=== PATIENT | female | born 1970 | race Caucasian/White ===

== ENCOUNTER 2016-11-26 15:01 | Inpatient (IN) | payer OTHER ==
--- NOTE | 2016-11-26 15:43 | RAD ---
EXAM DESCRIPTION: XR CHEST 1 VIEW CLINICAL HISTORY: shortness of breath COMPARISON: None TECHNIQUE: Single view chest FINDINGS: The lungs are clear. There is no pleural effusion or pneumothorax. Heart size is unremarkable. IMPRESSION: Unremarkable single view of the chest Electronically signed by: Jonel Contreras MD 11/26/2016 15:41
--- NOTE | 2016-11-26 16:26 | ED.PDOC ---
History of Present Illness - General Chief Complaint: Respiratory Problem Stated Complaint: Shortness of breath/ post op Time Seen by Provider: 11/26/16 15:23 Source: patient Exam Limitations: no limitations - History of Present Illness Initial Comments: THIS PATIENT WAS SENT FROM DR. CRISTINA'S OFFICE FOR RECURRENT DYSPNEA. EVIDENTLY SHE UNDERWENT BACK SURGERY RECENTLY AND WAS DISCHARGED FROM [facility] THIS PAST SATURDAY. BEFORE BEING DISCHARGED FROM THE SURGICAL SERVICE SHE BECAME SOB AND WAS KEPT FOR ANOTHER DAY OR TWO. SHE UNDERWENT AN ECHOCARDIOGRAM, BILATERAL LOWER LEG VENOUS DOPPLER STUDIES AND CT ANGIO OF THE CHEST THAT REVEALED NO PE. THE ECHO AND THE DOPPLER STUDIES WERE ALSO NEGATIVE. SHE WAS DISCHARGED TO F/U WITH HER PCP AND HAVE FURTHER INVESTIGATION OF THE DYSPNEA. EVIDENTLY SHE CONTINUES TO DESATURATE Timing/Duration: days - THREE DAYS Severity: moderate Activities at Onset: none Possible Cause: no prior episodes Improving Factors: nothing Worsening Factors: nothing Associated Symptoms: anxiety Respiratory Risk Factors: no cause identified Allergies/Adverse Reactions: Allergies Acetaminophen [From [place]] Allergy (Verified 10/12/16 21:29) Rash Hydrocodone [From [place]] Allergy (Verified 10/12/16 21:29) Rash Latex Allergy (Verified 10/12/16 21:29) Rash Review of Systems - Review of Systems Constitutional: Denies: chills, diaphoresis EENTM: States: no symptoms reported Respiratory: States: no symptoms reported Cardiology: States: palpitations Gastrointestinal/Abdominal: States: no symptoms reported Musculoskeletal: States: no symptoms reported Skin: States: no symptoms reported Neurological: States: no symptoms reported Endocrine: States: no symptoms reported Hematologic/Lymphatic: States: no symptoms reported All other Systems: Reviewed and Negative Past Medical History (General) - Patient Medical History Hx Seizures: No Hx Stroke: No Hx Dementia: No Hx Asthma: No Hx of COPD: No Hx Cardiac Disorders: No Hx Congestive Heart Failure: No Hx Pacemaker: No Hx Hypertension: Yes Hx Thyroid Disease: No Hx Diabetes: No Hx Gastroesophageal Reflux: No Hx Renal Disease: No Hx Cancer: No Hx of HIV: No Hx Hepatitis C: No Hx MRSA: Yes - Unknown Source 2014 - Vaccination History Hx Tetanus, Diphtheria Vaccination: No Hx Influenza Vaccination: Yes Hx Pneumococcal Vaccination: No - Social History Hx Tobacco Use: No Hx Alcohol Use: No Hx Substance Use: Yes - 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 Hx Substance Use Treatment: No Hx Depression: No Hx Physical Abuse: No Hx Emotional Abuse: No Hx Suspected Abuse: No - Female History Patient : No Family Medical History - Family History Mother Family History: No Known Living Status: Still Living Physical Exam - Physical Exam General Appearance: Alert, Anxious Eyes, Ears, Nose, Throat Exam: PERRL/EOMI, normal ENT inspection, TMs normal, pharynx normal Neck: non-tender, full range of motion, supple, normal inspection Respiratory: chest non-tender, lungs clear, normal breath sounds, no respiratory distress, no accessory muscle use Cardiovascular/Chest: normal peripheral pulses, regular rate, rhythm, no edema, no gallop, no JVD, no murmur Gastrointestinal/Abdominal: normal bowel sounds, non tender, soft, no organomegaly, no pulsatile mass 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 CBC, CMP AND ABG'S ARE NORMAL. THE CXR W/O ACUTE PROCESS. THE D-DDIMER EXPECTED IS ELEVATED AT 850. DISCUSSED CASE WITH HOSPITALIST AGUSTINA LANZA: WILL ADMIT FOR OBSERVATION. Departure - Departure Clinical Impression: Dyspnea Qualifiers: Dyspnea type: dyspnea on exertion Qualifier Code: (R06.09) Other forms of dyspnea Time of Disposition: 17:01 Disposition: Admit Patient Condition: Good Departure Forms: ED Discharge - Pt. Copy, Patient Portal Self Enrollment Diet: resume usual diet Referrals: Patrick Cristina MD [Primary Care Provider] - 1-2 Weeks Decision To Admit - Decistion To Admit Decision to Admit Reason: Admit from ER Decision to Admit Date: 11/26/16 Decision to Admit Time: 16:59
[2016-11-26] MEDS ORDERED: METHOCARBAMOL 750 MG TAB PO ONE (17:07)
[2016-11-26] MEDS ORDERED: SODIUM CHLORIDE 0.9% (FLUSH) 10 ML SYG IV PRN (17:16)
--- NOTE | 2016-11-26 17:33 | HP ---
SUPERVISING PHYSICIAN: Patrick Corrales M.D. CHIEF COMPLAINT: Dyspnea. HISTORY OF PRESENT ILLNESS: Ms. Lazaro is a 46 year-old female that presented to the Emergency Department from Dr. Corrales's office, her primary care physician, today complaining of worsening shortness of breath. She had a recent surgery in [place] for an L4-L5 lateral recess stenosis and lower extremity radiculopathy which she had a subtotal L4 laminectomy and bilateral foraminotomy for decompression and a partial L5 laminectomy with bilateral foraminotomies for decompression by Dr. Lemuel Irwin at [facility] in [place], [place]. Surgery was performed on 11/20/16. She tolerated surgery well and was being discharge at which time she developed severe shortness of breath and some chest pains. She was then admitted to the hospital at [facility] for further workup for possible pulmonary embolism. There she had a CT of the chest and per their radiology interpretation showed negative for pulmonary embolism but less than optimal contrast enhancement within the pulmonary arteries with small peripheral emboli difficult to fully exclude. She then had an echocardiogram which showed a normal left ventricular systolic function with an estimated ejection fraction of 55 to 60%. She also had bilateral venous Doppler studies which were both negative for deep venous thromboses. Initially when she presented to the floor at [facility] she had a heart rate of 130 and was satting per nurses' report down in the 50s. It is significant to know that in her family history she has a half brother who has had heart problems in his 50s and her mother has had a PE after surgery 30 years previously, but there is no history of clotting disorders within the family. The patient was discharged home and was seeing Dr. Corrales in followup today when she was again noted to be significantly short of breath even on 4 liters nasal cannula. Therefore she was referred to the E. R. for further workup. In the Emergency Department, a chest x-ray was performed initially and per radiology interpretation showed an unremarkable view of single chest. Laboratory studies showed just some mild anemia with 11.8 hemoglobin and 35.2 hematocrit with 249,000 platelet count. White counts was normal. Coagulation studies showed an elevated D-dimer, rate 37, however she is 1 week postoperative state. Her INR was 1.0, PTT was slightly elevated at 38.4. Blood gas now just show a pH of 7.4, bicarb 29, PO2 of 164 with PCO2 of 48. She was satting 100% on 3 liters nasal cannula. Chemistries showed normal electrolytes with a slightly elevated carbon dioxide of 32 with BUN 6, creatinine 0.54. All other liver functions and chemistries were within normal limits. Her vital signs showed temperature 99.2, pulse 95. She was satting 95 % on nasal cannula at 4 liters. Given the previous workup in the Emergency Department and questionable negative findings for pulmonary embolism but the patient's symptoms being persistent for worsening shortness of breath even on oxygen and her being in postoperative state, the patient will be admitted to the hospital [facility] for close observation and placed on telemetry and oxygen with anticipation of repeating a CTA of the chest in the morning to further investigate for a possible pulmonary embolism She will be started on Lovenox 1 mg per kg for PE treatment. She was admitted in stable condition. PAST MEDICAL HISTORY: 1. Chronic anemia. 2. Hyperlipidemia. 3. Depressive disorder. 4. Anxiety. 5. Essential hypertension. PAST SURGICAL HISTORY: 1. Exploratory lumbar laminectomy. 2. Hysterectomy. 3. Cholecystectomy. 4. Appendectomy. 5. Recent lumbar surgery by Dr. Irwin for subtotal L4 lumbar laminectomy and bilateral foraminotomies and partial L5 laminectomy and bilateral foraminotomies for decompression. HOME MEDICATIONS: Please refer to updated list of home medications in the electronic medical records for a complete list. Review of medical records show her to be on: 1. Crestor 10 mg tablet once daily. 2. Estrapatch 1.5 mg topically daily. 3. Lisinopril 5 mg daily. 4. Melatonin 500 mcg at bedtime. ALLERGIES: HYDROCODONE, LATEX AND TYLENOL. FAMILY HISTORY: Both parents are alive. Father has a history of myocardial infarction. Again, the mother has a history of a PE after surgery 30 years previously but no history of clotting disorders within the family. SOCIAL HISTORY: The patient has never smoked. She does not drink. She lives in [place]. She works at [employer]. REVIEW OF SYSTEMS: CONSTITUTIONAL: Denied any fevers, chills or diaphoresis. HEENT: No reported complaints. RESPIRATORY: As noted in History of Present Illness. Shortness of breath with exertional effort even on 4 liters nasal cannula. CARDIOVASCULAR: Denies any chest pains or palpitations. GASTROINTESTINAL: Denies any diarrhea, nausea or vomiting. MUSCULOSKELETAL: As noted, previous recent back surgery for laminectomy. GENITOURINARY: Denies any dysuria, increased frequency or other urinary complaints. NEUROLOGIC: She reports no syncopal episodes, presyncopal episodes, dizziness, headaches or any neurologic complaints. PHYSICAL EXAMINATION: VITAL SIGNS: Temperature 99.2, pulse 89, blood pressure 131/82, respirations 18 , satting 100% on nasal cannula at rest on 2 liters. Admission weight 62.14 kg. GENERAL: The patient is well nourished, well hydrated. Appears to be in no distress. She is somewhat anxious. HEENT: Tympanic membranes are clear bilaterally. Oropharynx is pink and moist without any lesions. NECK: There is no jugular venous distention. CHEST: Lungs are clear to auscultation without any rhonchi, wheezing or rales. CARDIOVASCULAR: Regular rate and rhythm without appreciable murmurs, gallops, or rubs. ABDOMEN: Soft, non-tender. Positive bowel sounds. EXTREMITIES: No clubbing, cyanosis or edema. BACK: An incision to the lumbar region with Steri-Strips in place with no signs of infection. NEUROLOGIC: Cranial nerves II-XII are grossly intact. Facial features are symmetrical. Extraocular movements are within normal limits. There is no nystagmus. There are no notable motor or sensory deficits. LABORATORY: CBC on admission shows white count 6.3, hemoglobin 11.8, hematocrit 35.2, platelet count 249,000. Differential shows to be within normal limits. Coagulation studies showed an elevated D-dimer at 837 with PT 12.4, INR 1.1, PTT 38.4. Blood gas analysis on 3 liters nasal cannula shows a pH of 7.4, bicarb 29, PO2 of 164, PCO2 of 48, satting 100%. Chemistries show normal electrolytes with potassium 3.6, carbon dioxide is a little elevated at 32 with BUN 6, creatinine 0.5, glucose 116. Liver functions were all within normal limits. Urine was within normal limits. RADIOLOGY: Chest x-ray per radiology interpretation single view chest shows unremarkable single view of the chest. ASSESSMENT: 1. Acute hypoxic respiratory failure persistent possibly secondary to pulmonary embolism versus some atelectasis bilaterally with initial CTA of the chest failing to show significant areas consistent with pulmonary embolism with the patient having recent surgery within the last week. 2. Lumbar radiculopathy with spinal stenosis of the lumbar region with recent surgery performed by Dr. Irwin in [facility]. 3. Question of pulmonary embolism suspected based off the patient's clinical findings and presentation, and persistent dyspnea. 4. Hypertension. 5. Chronic anemia. 6. Hyperlipidemia. 7. Depressive disorder. 8. Anxiety. PLAN: The patient will be admitted tonight, placed on telemetry and oxygen for close observation. She will be started on Lovenox 1 mg per kg subcue for concerns for developing PE. Cardiac enzymes will be added to her current laboratory studies. EKG shows a normal sinus rhythm without any ST elevation or T wave inversions. The patient does have risk factors concerning for a development of pulmonary embolism as she has been on hormone therapy as well as recent surgery. Discussed doing a CTA of the chest in the morning with her primary care physician, Dr. Corrales, as well as the patient to further investigation for a PE. A review of the records showed that her Doppler studies previously were both negative for lower extremity DVTs. She was also given a dose of Lovenox at [facility]. Will provide the patient with pulmonary hygiene, incentive spirometry and monitor closely for any worsening hypoxia or tachycardia. Anticipate length of stay to be 2 to 3 days pending clinical assessment, progression of symptoms and further findings on CTA studies. Until then, will continue to monitor the patient closely and treat appropriately. #[id number] [facility]
[2016-11-26] MEDS ORDERED: ENOXAPARIN SODIUM 60 MG/0.6 ML SYG SUBCU ONE (18:12)
[2016-11-26] MEDS: IV SET AND CAP CHANGE INJ INJ SCH (18:13)
[2016-11-26] MEDS: ZOLPIDEM TARTRATE 5 MG TAB PO PRN (21:58)
--- NOTE | 2016-11-27 01:32 | PCM.CORE ---
Physician DVT/VTE - Prophylaxis Currently: Patient already on anticoagulation therapy - Enoxaparin 1mg/kg q12 - Nurse DVT Assessment & Total Each Risk Factor Represents 3 Points: Hx of DVT/PE, Family Hx thrombosis Each Risk Factor Represents 1 Point: Age 41-60, Hx Major Surgery <1month Each Risk Factor is 1 Point: Obesity (BMI >25) For Women Only. Each Risk Factor Represents 1 Point: Oral Contraceptions or hormone replacement therapy DVT Assessment Score: 10 - 5 or more Very High Risk Treatments: Early Ambulation *, Sequential Compression Device
[2016-11-27] MEDS ORDERED: ENOXAPARIN SODIUM 60 MG/0.6 ML SYG SUBCU ONE (04:56)
--- NOTE | 2016-11-27 07:03 | CT ---
EXAM DESCRIPTION: CT CHEST ANGIOGRAPHY WITH IV CONTRAST CLINICAL HISTORY: 46 y/o F, Elvated D-Dimer , Dyspena, Hypoxia, ? PE COMPARISON: None TECHNIQUE: Axial CT images of the chest were obtained after the administration of IV contrast. MPR and MIP reconstructions were performed. DLP [id number] FINDINGS: No pulmonary embolism is detected. The visualized portions of the thyroid gland are normal. The central airways are patent. The heart is normal in size. There is no axillary, hilar, or mediastinal lymphadenopathy. There is no pericardial effusion. The lungs are clear. There is no pneumothorax or pleural effusion. There are changes of a cholecystectomy. The remainder of the visualized upper abdomen is grossly unremarkable. There are no lytic or blastic bone lesions IMPRESSION: No evidence of a pulmonary embolism. No acute chest findings Electronically signed by: Rafael Nguyen MD 11/27/2016 07:01
[2016-11-27] MEDS: SODIUM CHLORIDE 0.9% (FLUSH) 10 ML SYG IV SCH ×2 (09:54→21:38)
--- NOTE | 2016-11-27 13:11 | PN ---
SUPERVISING PHYSICIAN: Eduardo Rocha MD DATE: 11/27/16 SUBJECTIVE: The patient continues to require oxygen. She has gone from the bed to the bathroom without any oxygen and continues to show desaturation. She remains hemodynamically stable and is afebrile. OBJECTIVE: VITAL SIGNS: Temperature 98.3. Pulse 72. Blood pressure 118/80. Respirations 18. O2 saturation 100% on nasal cannula at 2 liters at rest. I& Os are well balanced. CHEST: Lungs clear to auscultation bilaterally. HEART: Regular rate and rhythm. ABDOMEN: Soft, nontender. Positive bowel sounds. EXTREMITIES: No cyanosis, clubbing or edema. NEUROLOGIC: Alert and oriented times three. LABORATORY: CBC this morning shows white count 5.7, hemoglobin 11.7, hematocrit 35.4, platelet count 254,000, differential within normal limits. Chemistries show normal electrolytes with potassium 4.5, carbon dioxide improved somewhat and now normalized at 28, BUN 8, creatinine 0.43, calcium 8.8 , glucose 101. RADIOLOGY: Chest/thoracic CTA to help rule out pulmonary embolism this morning per radiology interpretation showed no evidence of pulmonary embolism, no acute chest findings. ASSESSMENT: 1. Acute hypoxic respiratory failure likely secondary to pulmonary embolism with initial CT of the chest filing to identify any pulmonary embolism with the patient having recent surgery within the last week, requiring oxygen to maintain normal O2 saturations, continues to desaturate with any exertional effort. 2. Lumbar radiculopathy with spinal stenosis of the lumbar region with recent surgery performed by Dr. Irwin in [facility]. 3. Question of pulmonary embolism suspected based off the patient's clinical findings of hypoxia with exertion, tachycardia and oxygen requirement with persistent dyspnea. 4. Hypertension. 5. Chronic anemia. 6. Hyperlipidemia. 7. Depressive disorder. 8. Anxiety. PLAN: The patient will continue with PE treatment with Lovenox 1 mg/kg subcutaneously q.12h. The patient's primary care physician, Dr. Rocha, discussed the case with Dr. Gary, pulmonology specialty, who is in agreement that the patient most likely has a pulmonary embolism that is not being detected on scan. The plan at this point is to continue with oxygen and anticoagulation and obtain a VQ scan this coming . Until then, we will keep the patient at bedrest and monitor closely. Until the VQ scan is completed , we will continue to monitor the patient closely and treat appropriately. #[id number] [facility]
[2016-11-27] MEDS: ENOXAPARIN SODIUM 60 MG/0.6 ML SYG SUBCU SCH (17:52)
[2016-11-27] MEDS ORDERED: ROBAXIN 500 MG PO PRN (20:11)
[2016-11-27] MEDS: IBUPROFEN 400 MG TAB PO PRN (20:17)
[2016-11-27] MEDS ORDERED: LIPITOR 10 MG PO SCH (21:00)
[2016-11-27] MEDS ORDERED: MELATONIN 10 MG PO SCH (21:00)
[2016-11-27] MEDS ORDERED: ATORVASTATIN 10 MG TAB ONE (21:11)
[2016-11-27] MEDS: ZOLPIDEM TARTRATE 5 MG TAB PO PRN (21:37)
[2016-11-28] MEDS: ENOXAPARIN SODIUM 60 MG/0.6 ML SYG SUBCU SCH ×2 (05:19→18:00)
[2016-11-28] MEDS ORDERED: LISINOPRIL 5 MG TAB ONE (07:53)
[2016-11-28] MEDS: LISINOPRIL 5 MG TAB PO SCH (08:32)
[2016-11-28] MEDS: SODIUM CHLORIDE 0.9% (FLUSH) 10 ML SYG IV SCH ×2 (08:32→20:54)
[2016-11-28] MEDS: IBUPROFEN 400 MG TAB PO PRN (10:38)
[2016-11-28] MEDS ORDERED: ATORVASTATIN 10 MG TAB ONE (19:42)
[2016-11-28] MEDS ORDERED: MELATONIN 3 MG TAB ONE (19:42)
[2016-11-28] MEDS: MELATONIN 3 MG TAB PO SCH (20:50)
[2016-11-28] MEDS: ATORVASTATIN 10 MG TAB PO SCH (20:51)
--- NOTE | 2016-11-28 21:40 | PN ---
DATE: 11/28/16 SUPERVISING PHYSICIAN: Eduardo Rocha M.D. SUBJECTIVE: The patient continues to do well at bedrest. She has not had any chest pains but she does continue to desaturate with any minimal exertion, especially if she is off any O2. She remains stable as well as afebrile. OBJECTIVE: VITAL SIGNS: Temperature 97.8, pulse 56, blood pressure 110/80, respirations 20, O2 sat showing 100% on nasal cannula at rest. I's and O's show a negative balance of 210 with 740 in, 950 out. CHEST: Remains clear to auscultation bilaterally. HEART: Regular rate and rhythm. ABDOMEN: Soft, tenderness. Positive bowel sounds. EXTREMITIES: No clubbing, cyanosis or edema. NEUROLOGIC: She is alert and oriented times three. LABORATORY: Was not repeated today. RADIOLOGY: Chest thorax CTA per radiology interpretation showed no evidence of pulmonary embolism and no acute chest findings. PLAN: The patient will continue on PE treatment with Lovenox 1 mg per kg. She is scheduled for a VQ scan in the morning with no previous that required pre- treatment or any other prep needed. I did talk to [facility] and discussed talking to the radiology in regards to previous findings on the CTA with the patient's current clinical condition and the concerns for continued PE. [facility] recommended that we give the information to the radiologic technology program director to relay to the radiologist power generation equipment repairer or contact the [facility] again if any questions in efforts to give the radiologist some more clinical information in regards to current examinations. She does remain stable. Will continue to monitor closely and await final results of VQ scan. Until discharge, will continue to monitor the patient closely and treat appropriately. #[id number] [facility]
[2016-11-29] MEDS: ENOXAPARIN SODIUM 60 MG/0.6 ML SYG SUBCU SCH ×2 (05:17→18:00)
[2016-11-29] MEDS: LISINOPRIL 5 MG TAB PO SCH (09:00)
[2016-11-29] MEDS: SODIUM CHLORIDE 0.9% (FLUSH) 10 ML SYG IV SCH ×2 (09:00→21:09)
--- NOTE | 2016-11-29 12:54 | NM ---
EXAM DESCRIPTION: NM LUNG VENTILATION PERFUSION CLINICAL HISTORY: PE r/o history recent back surgery with sudden onset of shortness of breath, hypoxia, elevated D-dimer COMPARISON: CTA of the chest November 27, 2016 TECHNIQUE: The patient received 41 mCi technetium 99 M DTPA for the ventilation portion of the exam and 6.4 mCi technetium 99 M MAA for the perfusion portion of the exam. Images of the chest are obtained. FINDINGS: Ventilation shows diffuse homogeneous uptake of the radiopharmaceutical. No defects are identified. Perfusion imaging shows diffuse homogeneous uptake of the radiopharmaceutical. No wedge-shaped pleural-based perfusion defects are identified. IMPRESSION: Normal ventilation-perfusion nuclear medicine scan. Electronically signed by: Fermin Vitale MD 11/29/2016 12:52
[2016-11-29] MEDS: IV SET AND CAP CHANGE INJ INJ SCH (18:00)
--- NOTE | 2016-11-29 21:07 | PN ---
DATE: 11/29/16 SUPERVISING PHYSICIAN: Patrick Corrales M.D. SUBJECTIVE: The patient is sitting up in her hospital bed. She is in no acute distress. She denies any chest pain, shortness of breath, coughing, tachycardia or palpitations. When the patient ambulated in the hallways, she did complain of mild shortness of breath but her biggest complaint was the palpitations. Her heart rate on the monitor increased up to the 130s to 140s. Her oxygen saturation stayed around 91 to 92% but she was visibly tachypneic as well as in mild respiratory distress. OBJECTIVE: VITAL SIGNS: She is afebrile, pulse rate 97 although it did go up to the 130s to low 140s with ambulation, blood pressure 125/83, respiratory rate 20, it did go up to 26 to 28 while ambulating in the hallways. Her O2 sat on nasal cannula is 96% and it went down to 92 to 93% with exertion and ambulation. GENERAL: This is a 46 year-old female patient who is now sitting in her hospital bed. RESPIRATORY: Clear to auscultation bilaterally although somewhat diminished at the bases. CARDIAC: Regular rate and rhythm. ABDOMEN: Soft, nondistended, non-tender. bowel sounds are positive. EXTREMITIES: No cyanosis, clubbing or edema. BACK: She does have a healing incision to her lumbar spine area. There are no signs or symptoms of complications. The incision is well approximated and there is no drainage or erythema. NEUROLOGIC : She is awake, alert and oriented times three. LABORATORY: Her ABG this evening showed a pH of 7.41, PCO2 of 46.2, PO2 of 68, O2 sat 94.7%. Her nuclear lung scan shows a normal ventilation and perfusion nuclear medicine scan. All other labs and films have been reviewed via the EMR. ASSESSMENT: 1. Acute hypoxic respiratory failure most likely secondary to pulmonary embolism with initial CT of the chest with negative findings, although the patient recently had spinal surgery and was in the hospital 2 days longer than expected. She also traveled by car for 2 hours after discharge from the [facility]. She was also on estrogen therapy prior to her surgical procedure. She had a positive D-dimer in [place] and was hypoxic in the doctor's office with an O2 sat in the low 80s and continues to desaturate with exertional effort with a low oxygen saturation and has an increased pulse rate to the 130s and 140s. 2. Lumbar radiculopathy with spinal stenosis of the lumbar region with recent surgery performed by Dr. Irwin at [facility]. 3. Continued question of pulmonary embolism that is suspected based on the patient's clinical presentation as identified in number 1. 4. Hypertension. 5. Chronic anemia. 6. Hyperlipidemia. 7. Depressive disorder. 8. Anxiety. PLAN: We will continue with Lovenox treatment through [facility] and tomorrow we will start her on Xarelto 15 mg b.i.d. for a total initial anticoagulant therapy days of 21, then she will switch to Xarelto 20 mg daily for 3 to 6 months therapy. I spoke with Dr. Corrales at length and we will do Dr. Littlejohn's coagulopathy panel. We will continue to encourage good pulmonary toilet. I will encourage frequent ambulation in the hallways. She does have oxygen at home so she may have to be discharged at home with her supplemental oxygen. She will need close followup with Dr. Corrales and she will also need to see Dr. Gary, senior planning manager, at some point. We will continue to monitor the patient closely. She should be discharged tomorrow. Dr. Corrales is the supervising physician available for consultation. #[id number] [facility]
[2016-11-29] MEDS: RIVAROXABAN 15 MG TAB PO SCH (21:08)
[2016-11-29] MEDS: ATORVASTATIN 10 MG TAB PO SCH (21:08)
[2016-11-29] MEDS: ZOLPIDEM TARTRATE 5 MG TAB PO PRN (21:08)
[2016-11-29] MEDS: MELATONIN 3 MG TAB PO SCH (21:09)
[2016-11-30 07:04] VITALS: TEMP 97.8
[2016-11-30] MEDS: RIVAROXABAN 15 MG TAB PO SCH (08:32)
[2016-11-30] MEDS: LISINOPRIL 5 MG TAB PO SCH (08:32)
[2016-11-30] MEDS: SODIUM CHLORIDE 0.9% (FLUSH) 10 ML SYG IV SCH (08:33)
[2016-11-30 10:26] VITALS: BP 114/75; O2SAT 96
--- NOTE | 2016-11-30 13:39 | DS ---
SUPERVISING PHYSICIAN: Catarina Corrales MD DISCHARGE DIAGNOSIS: 1. Pulmonary embolism. 2. Acute hypoxic respiratory failure, secondary to pulmonary embolism with an initial CTA of the chest with negative findings although the patient recently had spinal surgery and was in the hospital two days longer than expected. It is unknown if she received anticoagulants. She also traveled by car for two hours after discharge from the [facility] and has also been fairly immobile. She was also on estrogen therapy prior to her surgical procedure and she had a positive D-dimer in [place]. She was also hypoxic at the doctor's office with an O2 saturation in the low 80s. She continued to desaturation with exertional effort up until today. She was also sent home on oxygen from the hospital in [place] due to her low oxygen saturations and elevated heart rate. Yesterday, her saturations stabilized in the low 90s, but she had an increased pulse rate to the 130s and 140s with any exertion, also showing respiratory distress with tachypnea. She has been on Lovenox and recently switched to Xarelto. 3. Lumbar radiculopathy with spinal stenosis of the lumbar region with recent surgery performed by Dr. Irwin at [facility]. 4. Continue question of pulmonary embolism that is suspected based on the patient's clinical presentation as identified in #1. 5. Hypertension. 6. Chronic anemia. 7. Hyperlipidemia. 8. Depressive disorder. 9. Anxiety. HISTORY OF PRESENT ILLNESS: This is a 46-year-old female patient who presented to the Emergency Room from Dr. Corrales's office on her day of admission with complaints of worsening shortness of breath. She recently had lumbar surgery in [place] for an L4 to L5 lateral recess stenosis and lower extremity radiculopathy and she had a subtotal L4 laminectomy and bilateral foraminotomy for decompression and a partial L5 laminectomy with bilateral foraminotomies for decompression by Dr. Lemuel Irwin at [facility] in [place]. Surgery was performed on 11/20/16. She tolerated the surgery well, but at discharge, she developed some severe shortness of breath and some chest pains. Her heart rate was elevated to the 140s. She was admitted back to the hospital at [facility] for further workup for possible pulmonary embolism. Her CT of the chest per their radiology interpretation was negative for pulmonary embolism, but less than optimal contrast enhancement within the pulmonary arteries with small pulmonary emboli difficult to fully exclude. She then had an echocardiogram which showed normal ventricular function with an estimated ejection fraction of 55% to 60%. She also had bilateral venous Doppler studies that were both negative for deep venous thromboses. Upon re- admission to [facility], she had a heart rate in the 130s to 140s and had O2 saturations reported in the 50s. It is also significant to note that in her family history she has a half brother who has had heart problems in his 50s and her mother had a pulmonary embolism after surgery 30 years ago. On the day of admission, she was seeing Dr. Corrales for her discharge followup in the office and she was noted to be significantly short of breath even on 4 liters nasal cannula. It was reported that her oxygen saturation at Dr. Corrales's office was in the low 80s. She was sent to the Emergency Room for further workup. Chest x -ray was performed and her x-ray was unremarkable. She had some mild anemia. Her coagulation studies showed an elevated D-dimer. She was admitted to the hospital. HOSPITAL COURSE: She was started on Lovenox 1 mg/kg b.i.d. in the hospital. She also had a chest thoracic CTA that showed no evidence of a pulmonary embolism with no acute chest findings. She continued to have good oxygen saturations while at rest, but with any exertion, her oxygen saturations dropped as well as elevated heart rate and she had to be given supplemental oxygen. Yesterday, a VQ scan was performed and was negative. Her treatment continued in the hospital for a pulmonary embolism mostly due to her clinical presentation and having recent spinal surgery, on previous estrogen hormone replacement therapy, unknown previous anticoagulation therapy, elevated D-dimer , and immobility complicated by a long car ride home after discharge. She was to be discharged yesterday, but with ambulation, her oxygen saturations remained above 90%, but her heart rate accelerated up to the 130s to 140s and she was tachypneic as well as in mild to moderate respiratory distress. She was monitored closely overnight and today she has ambulated in the hallways without problems. Her heart rate does get up into the low 100s, but she maintains her oxygen saturations greater than 93%. She also has home oxygen if needed. DISCHARGE PLAN: The patient will be discharged home in stable condition. She has oxygen at home if she needs supplementation. She is to increase her activity slowly and as tolerated. I have given her a prescription for Xarelto 15 mg b.i.d., #35, which will be a total initial anticoagulant therapy of 21 days, then she will switch to Xarelto 20 mg daily for 3 to 6 months therapy. I have given her one prescription for [address] Corrales can refill that prescription for the length of time that he wishes to do her anticoagulant therapy. I have also done a coagulopathy panel that was recommended by Dr. Littlejohn, nuclear waste process operator. She has an appointment with Dr. Corrales on Saturday at 9 AM. Hopefully the lab will be resulted. She will also need close followup with Dr. Gary, managing editor. The patient has been instructed to discontinue her estrogen therapy at this time. She is to call the clinic or return to the hospital if she has any further complications or problems. Dr. Corrales is the collaborating physician and available for consultation. DISCHARGE MEDICATIONS: 1. Lipitor. 2. Lisinopril. 3. Robaxin. 4. Melatonin. 5. Xarelto 15 mg b.i.d., #35 tablets. 6. Xarelto 20 mg daily to be started after the completion of her previous Xarelto prescription. #[id number] ADDENDUM: Consultation with Dr. Gary, managing editor, Dr. Littlejohn, nuclear waste process operator, Dr. Rocha, hospitalist, Dr. Corrales, hospitalist and patient's PCP , and based on clinical presentation and continued symptoms, patient was treated for pulmonary embolism. [facility]
== END 2016-11-30 12:15 | disposition home or self-care (01) | DRG 175 ==
LOC: ER 15:01 → MS 17:32
PROVIDERS: ADMIT Nurse Practitioner Family; ATTEND Nurse Practitioner Acute Care
PROC: B32SYZZ Computerized Tomography (CT Scan) of Right Pulmonary Artery using Other Contrast (ICD-10-PCS; principal; 2016-11-27)
PROC: B32TYZZ Computerized Tomography (CT Scan) of Left Pulmonary Artery using Other Contrast (ICD-10-PCS; principal; 2016-11-27)
DX: I26.99 Other pulmonary embolism without acute cor pulmonale (principal); J96.01 Acute respiratory failure with hypoxia; I10 Essential (primary) hypertension; D64.9 Anemia, unspecified; E78.5 Hyperlipidemia, unspecified; F32.9 Major depressive disorder, single episode, unspecified; F41.9 Anxiety disorder, unspecified; Z98.890 Other specified postprocedural states; Z79.899 Other long term (current) drug therapy; Z88.5 Allergy status to narcotic agent; Z88.6 Allergy status to analgesic agent; Z91.040 Latex allergy status; Z79.890 Hormone replacement therapy

== ENCOUNTER 2016-12-09 17:31 | Emergency (ER) | payer OTHER ==
--- NOTE | 2016-12-09 18:10 | ED.PDOC ---
History of Present Illness - General Chief Complaint: Cardiovascular Problem Stated Complaint: palpitations Time Seen by Provider: 12/09/16 18:00 Source: patient Exam Limitations: no limitations - History of Present Illness Initial Comments: Patient presents after having an episode of palpitations. It has since resolved. Lasted for a few minutes. She was hospitalized over a week ago for a presumed pulmonary embolism and started on Xarelto. At that time, she was short of breath. She has no dyspnea nor chest pain today. No other complaints. Timing/Duration: momentarily Severity: mild Improving Factors: nothing Worsening Factors: nothing Associated Symptoms: denies symptoms Allergies/Adverse Reactions: Allergies Acetaminophen [From [place]] Allergy (Verified 12/09/16 18:03) Rash Hydrocodone [From [place]] Allergy (Verified 12/09/16 18:03) Rash Latex Allergy (Verified 12/09/16 18:03) Rash Home Medications: Ambulatory Orders Lipitor 10 mg PO BEDTIME 11/27/16 Lisinopril 5 mg PO DAILY 11/27/16 Melatonin 10 mg PO BEDTIME 11/27/16 Robaxin 500 mg PO PRN PRN 11/27/16 Rivaroxaban [Xarelto] 15 mg PO BID #35 tab 11/30/16 Rivaroxaban [Xarelto] 20 mg PO DAILY #30 tab 11/30/16 Review of Systems - Review of Systems Constitutional: States: no symptoms reported EENTM: States: no symptoms reported Respiratory: States: no symptoms reported Cardiology: States: see HPI Gastrointestinal/Abdominal: States: no symptoms reported Genitourinary: States: no symptoms reported Musculoskeletal: States: no symptoms reported Skin: States: no symptoms reported Neurological: States: no symptoms reported Endocrine: States: no symptoms reported Hematologic/Lymphatic: States: no symptoms reported Past Medical History (General) - Patient Medical History Hx Seizures: No Hx Stroke: No Hx Dementia: No Hx Asthma: No Hx of COPD: No Hx Cardiac Disorders: No Hx Congestive Heart Failure: No Hx Pacemaker: No Hx Hypertension: Yes Hx Thyroid Disease: No Hx Diabetes: No Hx Gastroesophageal Reflux: No Hx Renal Disease: No Hx Cancer: No Hx of HIV: No Hx Hepatitis C: No Hx MRSA: No - Unknown Source 2014 - Vaccination History Hx Tetanus, Diphtheria Vaccination: No Hx Influenza Vaccination: Yes Hx Pneumococcal Vaccination: No - Social History Hx Tobacco Use: No Hx Alcohol Use: No Hx Substance Use: Yes - 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 Hx Substance Use Treatment: No Hx Depression: No Hx Physical Abuse: No Hx Emotional Abuse: No Hx Suspected Abuse: No - Female History Patient : No Family Medical History - Family History Mother Family History: No Known Living Status: Still Living Physical Exam - Physical Exam General Appearance: Alert Respiratory: lungs clear, normal breath sounds Cardiovascular/Chest: normal peripheral pulses, regular rate, rhythm Gastrointestinal/Abdominal: normal bowel sounds, non tender, soft Extremity: no pedal edema Skin Exam: normal color Progress - Progress Progress: 12/09/16 18:11 Patient is not having chest pain nor dyspnea. She is already on Xarelto. D- dimer likely to be elevated from the previous clot. To prevent the radiation of another CT scan in the unlikely event that this is another pulmonary embolism, will have her continue her Xarelto as prescribed and have her return if chest pain or shortness of breath occurs. Patient voiced understanding and agreement with this plan. Departure - Departure Clinical Impression: Palpitations Disposition: Discharge to Home or Self Care Condition: Good Departure Forms: ED Discharge - Pt. Copy, Patient Portal Self Enrollment Diet: resume usual diet Activity: increase activity as tolerated Home Medications: Ambulatory Orders Lipitor 10 mg PO BEDTIME 11/27/16 Lisinopril 5 mg PO DAILY 11/27/16 Melatonin 10 mg PO BEDTIME 11/27/16 Robaxin 500 mg PO PRN PRN 11/27/16 Rivaroxaban [Xarelto] 15 mg PO BID #35 tab 11/30/16 Rivaroxaban [Xarelto] 20 mg PO DAILY #30 tab 11/30/16 Additional Instructions: Return to ER immediately for shortness of breath or chest pain.
[2016-12-09 18:19] VITALS: TEMP 99.4; O2SAT 99
[2016-12-09 18:48] VITALS: BP 131/76
== END 2016-12-09 18:46 | disposition home or self-care (01) ==
LOC: ER 17:31
DX: R00.2 Palpitations (principal); I10 Essential (primary) hypertension; Z88.6 Allergy status to analgesic agent; Z91.040 Latex allergy status; Z79.899 Other long term (current) drug therapy; Z79.01 Long term (current) use of anticoagulants; Z86.711 Personal history of pulmonary embolism

== ENCOUNTER → 2016-12-26 | Outpatient (CLI) | payer OTHER ==
[~2016-12-26] MED LIST: ALBUTEROL SULFATE 2.5 MG/3 ML VIAL NEB ONE
== END ==
LOC: RESP 13:41
PROVIDERS: ATTEND Family Medicine
DX: I26.99 Other pulmonary embolism without acute cor pulmonale (principal)

== ENCOUNTER → 2017-01-22 | Outpatient (CLI) | payer OTHER ==
--- NOTE | 2017-01-22 13:58 | RAD ---
EXAM DESCRIPTION: Lumbar Spine 3 Views CLINICAL HISTORY: 46 years Female, BACK PAIN COMPARISON: None. FINDINGS: There is no vertebral body fracture or subluxation. The disc spaces are well maintained. The facet joints are anatomically aligned. The spinous and transverse processes are intact, and the sacroiliac joints are unremarkable. There has been prior cholecystectomy. There is a round circumscribed 4 or 5 cm structure in the left mid abdomen, possibly representing a bowel loop. IMPRESSION: No apparent lumbar spine abnormality. 4 or 5 cm masslike structure in the left mid abdomen probably representing a bowel loop. Ultrasound or CT is suggested for confirmation. 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
== END ==
LOC: RAD 13:30
PROVIDERS: ATTEND Orthopaedic Surgery Orthopaedic Surgery of the Spine
DX: M54.16 Radiculopathy, lumbar region (principal)

== ENCOUNTER → 2017-01-24 | Outpatient (CLI) | payer OTHER ==
--- NOTE | 2017-01-24 11:15 | CT ---
EXAM DESCRIPTION: Abdomen/Pelvis w/wo Contrast CLINICAL HISTORY: ABDOMINAL MASS COMPARISON: October 13, 2016 TECHNIQUE: CT of the abdomen and Pelvis was performed with and without IV contrast. FINDINGS: There is no abdominal aortic aneurysm. No adenopathy, ascites or pneumoperitoneum. The gallbladder is surgically absent. There are a few tiny round low density liver lesions, too small to characterize but stable from September,. There are 2 small left renal cysts. A small round exophytic low-density lesion arising from the superior pole of the left kidney is not definitely cystic but probably represents a hemorrhagic or proteinaceous cyst. The spleen, pancreas, adrenals and right kidney are unremarkable. No dilated small bowel loops. No bladder wall thickening. The uterus and ovaries are not seen, please correlate with surgical history. No colonic wall thickening or pericolonic inflammation. No concerning bone lesion. No hernia or other abdominal wall lesion. IMPRESSION: No suspicious mass in the abdomen or pelvis. Several small round low density liver lesions, too small to characterize but stable from September, and likely representing cysts. 2 small left renal cysts with a third low-density lesion arising from the superior pole of the left kidney likely representing a proteinaceous or hemorrhagic cyst. If relevant, ultrasound could be performed for further evaluation. Electronically signed by: Armand Mock MD 01/24/2017 11:13 AM WASTEWATER PROJECT ENGINEER
== END | disposition home or self-care (01) ==
LOC: CT 07:10
PROVIDERS: ATTEND Family Medicine
DX: K76.89 Other specified diseases of liver (principal); N28.1 Cyst of kidney, acquired

== ENCOUNTER → 2017-02-04 | Outpatient (CLI) | payer OTHER ==
--- NOTE | 2017-02-05 07:23 | US ---
Renal sonogram CLINICAL HISTORY: Renal lesion left kidney. Sonographic characterization COMPARISON: CT dated 01/24/[address] 07/18/2010 FINDINGS: Both kidneys are normal in size and echotexture. No hydronephrosis, nephrolithiasis or solid renal mass lesion. There are 2 low-density left renal lesions on CT with Hounsfield unit density in the low 20s. Renal sonogram demonstrates both of these as anechoic cysts one of which measures 9 mm in greatest dimension and the other 14 mm in greatest dimension The previous CT also demonstrated a small exophytic cyst upper pole which is not visualized sonographically: IMPRESSION: 2 lesions in the left kidney clearly cysts by sonography. The other exophytic lesion upper pole was not imaged by sonography but is also consistent with renal cyst No suspicion of solid renal mass lesion Electronically signed by: Patrick Crowe MD 02/05/2017 7:22 AM CDT
== END | disposition home or self-care (01) ==
LOC: US 13:38
PROVIDERS: ATTEND Nurse Practitioner Acute Care
DX: N28.1 Cyst of kidney, acquired (principal)

== ENCOUNTER → 2017-02-18 | Outpatient (CLI) | payer OTHER | END | disposition home or self-care (01) | LOC: GMAM 05:40 | PROVIDERS: ATTEND Family Medicine | DX: E16.2 Hypoglycemia, unspecified (principal); I10 Essential (primary) hypertension; R06.02 Shortness of breath; E78.2 Mixed hyperlipidemia ==

== ENCOUNTER 2017-03-03 15:13 | Observation (INO) | payer OTHER ==
[2017-03-03] MEDS ORDERED: LIDOCAINE VIS-MYLANTA 30 ML UD PO ONE ×2 (16:15→16:16)
[2017-03-03] MEDS ORDERED: HYDROmorphone HCL INJ 2 MG/ML VIAL IV ONE (16:32)
--- NOTE | 2017-03-03 17:32 | CT ---
Procedure: CT ABDOMEN PELVIS WITH IV CONTRAST Exam Date: 03/03/2017 Ordering Provider: Ashley Rodriguez Clinical Indication: epigastric pain/elevated lipase Comparison: 01/24/2017 TECHNIQUE: 5 mm images were taken through the abdomen and pelvis after the administration of nonionic intravenous contrast material. Oral contrast was not administered. Coronal and sagittal reformatted images were generated. This exam was performed according to our departmental dose optimization program which includes use of automated exposure control, adjustment of the mA and/or kV according to patient size and/or use of iterative reconstruction technique. FINDINGS: Lower chest: Nonacute Abdomen: Liver and biliary system: Stable subcentimeter low-density liver lesions, likely cysts. Minimal intrahepatic biliary ductal dilatation. Prior cholecystectomy. Spleen: Unremarkable Pancreas: Unremarkable Adrenal glands: Unremarkable Kidneys: Stable left renal cysts. No hydronephrosis in either kidney. Lymph nodes: No lymphadenopathy Retroperitoneum, abdominal wall, peritoneal cavity: No ascites. No free intraperitoneal air. Vessels: No abdominal aortic aneurysm. Pelvis: Lymph nodes: No lymphadenopathy Bowel: No bowel obstruction. Appendix not visualized. No findings to suggest acute appendicitis. No bowel wall thickening. Bladder: Unremarkable Pelvic organs: Prior hysterectomy. Bones: Nonacute IMPRESSION: 1. No acute abnormalities in the abdomen or pelvis. Electronically signed by: Steve Storm MD 03/03/2017 5:31 PM CDT
--- NOTE | 2017-03-03 18:55 | ED.PDOC ---
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 The pain is severe and sharp. She denies any nausea/vomiting. She previously had some constipation, however her PCP put her on Amitiza and she has had loose stools since. No fever/chills. Abdominal Pain Onset Location: epigastric Pain Radiation: no radiation Quality: severe Timing/Duration: 1/2 hour Improving Factors: nothing Worsening Factors: nothing Associated Symptoms: denies symptoms Review of Systems - Review of Systems Constitutional: States: no symptoms reported EENTM: States: no symptoms reported Respiratory: States: no symptoms reported Cardiology: States: no symptoms reported Gastrointestinal/Abdominal: States: abdominal pain Genitourinary: States: no symptoms reported Musculoskeletal: States: no symptoms reported Skin: States: no symptoms reported Neurological: States: no symptoms reported Endocrine: States: no symptoms reported Hematologic/Lymphatic: States: no symptoms reported All other Systems: Reviewed and Negative Past Medical History (General) - Patient Medical History Hx Seizures: No Hx Stroke: No Hx Dementia: No Hx Asthma: No Hx of COPD: No Hx Cardiac Disorders: No Hx Congestive Heart Failure: No Hx Pacemaker: No Hx Hypertension: Yes Hx Thyroid Disease: No Hx Diabetes: No Hx Gastroesophageal Reflux: No Hx Renal Disease: No Hx Cancer: No Hx of HIV: No Hx Hepatitis C: No Hx MRSA: No - Unknown Source 2013 Surgical History: appendectomy, cholecystectomy, Hysterectomy - Vaccination History Hx Tetanus, Diphtheria Vaccination: No Hx Influenza Vaccination: Yes Hx Pneumococcal Vaccination: No - Social History Hx Tobacco Use: No Hx Alcohol Use: No Hx Substance Use: Yes - 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 Hx Substance Use Treatment: No Hx Depression: No Hx Physical Abuse: No Hx Emotional Abuse: No Hx Suspected Abuse: No - Activities of Daily Living Hospice Agency (if applicable):: None - Female History Patient is a Female of Child Bearing Age (10 -59 yrs old): No Patient : No Family Medical History - Family History Mother Family History: No Known Living Status: Still Living Physical Exam - Physical Exam General Appearance: Alert, Obvious distress Eyes, Ears, Nose, Throat Exam: normal ENT inspection Neck: supple Respiratory: lungs clear, normal breath sounds, no respiratory distress, no accessory muscle use Cardiovascular/Chest: regular rate, rhythm, no edema, no murmur Gastrointestinal/Abdominal: soft, no organomegaly, abnormal bowel sounds - hyperactive, tenderness - epigastric Back Exam: no CVA tenderness Extremity: normal range of motion, non-tender, normal inspection, no pedal edema Neurologic: alert, normal mood/affect, oriented x 3 Skin Exam: normal color, warm/dry Progress - Results/Orders Results/Orders: 03/03/17 16:33 Hold Metformin x 48Hrs [id number] Laboratory Results WBC 5.0 K/mm3 (4.8-10.8) 03/03/17 15:39 RBC 4.19 M/mm3 (4.20-5.40) L 03/03/17 15:39 Hgb 12.9 gm/dL (12.0-16.0) 03/03/17 15:39 Hct 39.3 % (36.0-47.0) 03/03/17 15:39 MCV 93.9 fl (81.0-99.0) 03/03/17 15:39 MCH 30.7 pg (27.0-31.0) 03/03/17 15:39 MCHC 32.7 g/dL (33.0-37.0) L 03/03/17 15:39 RDW 13.5 % (11.5-14.5) 03/03/17 15:39 Plt Count 256 K/mm3 (130-400) 03/03/17 15:39 MPV 8.0 fl (7.40-10.4) 03/03/17 15:39 Absolute Neuts (auto) 2.50 K/uL (1.8-6.8) 03/03/17 15:39 Absolute Lymphs (auto) 2.00 K/uL (1.0-3.4) 03/03/17 15:39 Absolute Monos (auto) 0.40 K/uL (0.2-0.8) 03/03/17 15:39 Absolute Eos (auto) 0.10 K/uL (0.0-0.4) 03/03/17 15:39 Absolute Basos (auto) 0.00 K/uL (0.0-0.1) 03/03/17 15:39 Neutrophils % 50.4 % (42.0-78.0) 03/03/17 15:39 Lymphocytes % 40.6 % (20.0-50.0) 03/03/17 15:39 Monocytes % 7.4 % (2.0-9.0) 03/03/17 15:39 Eosinophils % 1.4 % (1.0-5.0) 03/03/17 15:39 Basophils % 0.2 % (0.0-2.0) 03/03/17 15:39 D-Dimer, Quantitative < 230 ng/mL (0-230) 03/03/17 15:39 Sodium 140 mmol/L (135-145) 03/03/17 15:39 Potassium 3.6 mmol/L (3.6-5.0) 03/03/17 15:39 Chloride 101 mmol/L (101-111) 03/03/17 15:39 Carbon Dioxide 33 mmol/L (21-31) H 03/03/17 15:39 Anion Gap 9.6 (12-18) L 03/03/17 15:39 BUN 12 mg/dL (7-18) 03/03/17 15:39 Creatinine 0.51 mg/dL (0.6-1.3) L 03/03/17 15:39 BUN/Creatinine Ratio 23.5 (10-20) H 03/03/17 15:39 Random Glucose 99 mg/dL (70-105) 03/03/17 15:39 Serum Osmolality 279.2 mOsm/L (275-295) 03/03/17 15:39 Calcium 9.4 mg/dL (8.4-10.2) 03/03/17 15:39 Total Bilirubin 0.3 mg/dL (0.2-1.0) 03/03/17 15:39 AST 32 IU/L (10-42) 03/03/17 15:39 ALT 23 IU/L (10-60) 03/03/17 15:39 Alkaline Phosphatase 87 IU/L (42-121) 03/03/17 15:39 Creatine Kinase 104 IU/L (26-140) 03/03/17 17:38 CK-MB (CK-2) 1.3 ng/mL (0.0-4.4) 03/03/17 17:38 CK-MB (CK-2) % Not Reportable 03/03/17 17:38 Troponin I < 0.02 ng/mL (0.01-0.05) 03/03/17 17:38 Serum Total Protein 8.2 gm/dL (6.4-8.2) 03/03/17 15:39 Albumin 4.6 g/dl (3.2-5.5) 03/03/17 15:39 Globulin 3.6 gm/dL (2.3-3.5) H 03/03/17 15:39 Albumin/Globulin Ratio 1.3 (1.1-1.9) 03/03/17 15:39 Amylase 89 U/L (28-100) 03/03/17 17:36 Lipase 121 U/L (22-51) H 03/03/17 15:39 Urine Color Yellow (Yellow) 03/03/17 15:59 Urine Appearance Clear (Clear) 03/03/17 15:59 Urine pH 7.0 (4.5-7.8) 03/03/17 15:59 Ur Specific [place] 1.020 (1.005-1.030) 03/03/17 15:59 Urine Protein Negative mg/dL 03/03/17 15:59 Urine Glucose (UA) Negative mg/dL (Negative) 03/03/17 15:59 Urine Ketones Trace mg/dL (NEGATIVE) 03/03/17 15:59 Urine Blood Trace-intact (Negative) H 03/03/17 15:59 Urine Nitrite Negative 03/03/17 15:59 Urine Bilirubin Negative (NEGATIVE) 03/03/17 15:59 Urine Urobilinogen 0.2 mg/dL (0.2-1.0) 03/03/17 15:59 Ur Leukocyte Esterase Negative (Negative) 03/03/17 15:59 Urine RBC 0-1 /hpf 03/03/17 15:59 Urine WBC 0 /hpf 03/03/17 15:59 Ur Epithelial Cells 0-1 /hpf 03/03/17 15:59 Urine Bacteria 0 03/03/17 15:59 Urine Opiates Screen Positive ng/mL (2000) H 03/03/17 15:29 Urine Barbiturates Negative ng/mL (200) 03/03/17 15:29 Ur Phencyclidine Scrn Negative ng/mL (25) 03/03/17 15:29 U Amphetamin/Meth Scrn Negative ng/mL (1000) 03/03/17 15:29 U Benzodiazepines Scrn Negative ng/mL (200) 03/03/17 15:29 U Cocaine Metab Screen Negative ng/mL (300) 03/03/17 15:29 U Cannabinoids Screen Negative ng/mL (50) 03/03/17 15:29 03/03/17 03/03/17 03/03/17 15:15 17:00 18:01 Temperature 98.6 F Pulse Rate [ 98 H 89 104 H pulse ox] Respiratory 20 20 20 Rate Blood Pressure 161/117 159/96 136/108 [Left Arm] O2 Sat by Pulse 100 94 L 97 Oximetry - EKG/XRAY/CT EKG: Sinus - 84 bpm, nonspecific ST T wave Chg, Changed from - 11/26/2016 - No nonspecific ST T wave changes Comments: NMS axis, NML intervals, Abn EKG CT: Abd/Pelv: No acute process CT Ordered: Yes Departure - Departure Clinical Impression: Elevated lipase Abdominal pain Qualifiers: Abdominal location: epigastric Qualifier Code: (R10.13) Epigastric pain Time of Disposition: 19:00 Disposition: Admit Patient Condition: Good Home Medications: Ambulatory Orders Lubiprostone [Amitiza] 24 mcg PO BID 03/03/17 Rosuvastatin Calcium 10 mg PO DAILY 03/03/17 Zolpidem Tartrate [Ambien] 5 mg PO DAILY 03/03/17 Decision To Admit - Decistion To Admit Decision to Admit Reason: Medical Nature Decision to Admit Date: 03/03/17 Decision to Admit Time: 18:30
[2017-03-03] MEDS ORDERED: ONDANSETRON INJ 4 MG/2 ML VIAL IV PRN (19:17)
[2017-03-03] MEDS ORDERED: HYDROmorphone HCL INJ 2 MG/ML VIAL IV PRN (19:20)
[2017-03-03] MEDS ORDERED: TEMAZEPAM 15 MG CAP PO PRN (19:24)
[2017-03-03] MEDS ORDERED: IV SET AND CAP CHANGE INJ INJ SCH (19:30)
[2017-03-03] MEDS ORDERED: PANTOPRAZOLE SODIUM IV 40 MG VIAL IV SCH (19:30)
[2017-03-03] MEDS ORDERED: LISINOPRIL 5 MG TAB PO SCH (20:00)
[2017-03-03] MEDS ORDERED: ENOXAPARIN SODIUM 40 MG/0.4 ML SYG SUBCU SCH (20:00)
--- NOTE | 2017-03-03 20:09 | HP ---
HISTORY OF PRESENT ILLNESS: This 46 year-old white female is placed in the hospital from the Emergency Room because of increasing and worsening abdominal pain especially noted for approximately 4 hours prior to admission. It is located in the epigastric region with some referral around to the left upper abdomen. It is of note that she recently has been followed closely with Dr. Corrales, her primary care physician in the clinic and was started on Amitiza as well as most recently some repeat dosings of Milk of Magnesia to assist with significant fecal impaction. She has had some loose stools recently so medications have shown functionality. No nausea and vomiting. No blood in the stools otherwise evident. Her appetite is only fair. It is of note that she has had a significant lumbar spine surgery with discectomy on 2 different levels performed in [place] on 11/20/16. Shortly after her surgery, she had a significant hypoxic episode and repeat evaluations with CTA as well as nuclear scans failed to show a pulmonary emboli, but she was treated for it because of the significant presentation. She has been doing better now and reviewing her current medications show that she has been off of the Xarelto from about 4 months ago. She has had an episode of pancreatitis in the past with epigastric discomfort with radiation to the back and her current symptoms are very similar to that presentation. In the Emergency Room, her Lipase was slightly elevated requiring repeat evaluation and GI rest in an effort to try to prevent it from worsening. She is placed in the hospital for an overnight observation purpose. Repeat lab in the morning. No fever or chills or no blood in the stools evident. PAST MEDICAL HISTORY: 1. Chronic anemia. 2. Elevated lipids. 3. Depressive disorder. 4. Anxiety. 5. Essential hypertension. PAST SURGICAL HISTORY: 1. Lumbar laminectomy with disc removal and subtotal L4 lumbar laminectomy and bilateral foraminotomies, and partial L5 laminectomy and bilateral foraminotomies for decompression performed by Dr. Irwin in [place]. 2. Hysterectomy. 3. Cholecystectomy. 4. Appendectomy. HOME MEDICATIONS: Please refer to nurses' notes for an up to date list of verified home medications. ALLERGIES: HYDROCODONE, LATEX AND TYLENOL. FAMILY HISTORY: Diabetes and coronary artery disease, and the possibility of a clotting disorder with the mother having had a PE after surgery 30 years previously. SOCIAL HISTORY: The patient lives and works in [place] and works at the [employer]. 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 REVIEW OF SYSTEMS: Increasing abdominal pain with her current treatment course possibly as a reaction to some of the medicines recently given for the fecal impaction with no bleeding otherwise evident. She has been losing some weight. LUNGS: No significant shortness of breath recently. CARDIOVASCULAR: No significant chest pains. GENITOURINARY: No dysuria. PHYSICAL EXAMINATION: VITAL SIGNS: Afebrile, pulse 98, blood pressure 161/117 decreasing to 159/96, pulse oximetry 100% on room air. Weight is 62.6 kilos. GENERAL: The patient is awake and alert. She had fairly good relief of the epigastric pain with a dose of Dilaudid being given parenterally. Slight itching was evident and needs to be observed to see if it worsens if used again for pain relief. HEENT: Within normal limits. NECK: Supple. CHEST: Lungs generally clear with slightly diminished breath sounds but no shortness of breath at this time. No cough. No hemoptysis. CARDIOVASCULAR: Heart tones are regular without significant dysrhythmias. ABDOMEN: Has increased bowel tone activities. Somewhat tender in the epigastrium to the left upper quadrant with no organomegaly otherwise evident. No rebound tenderness appreciated. EXTREMITIES: Within normal limits. No significant edema state or calf pain upon compression. NEUROLOGIC: No focal neurological deficits. LABORATORY: White count 5,000, hemoglobin 12.9. D-dimer is under 230. Chemistries show sodium 140, potassium 3.6, CO2 of 33, BUN 12, creatinine 0.51, glucose 99. Liver enzymes normal. Cardiac enzymes normal with troponin zero. Albumin 4.6, lipase 121, amylase normal at 89. Urinalysis shows a trace of blood, otherwise clean. Urine opiate screen was positive from a Tylenol #3 taken earlier at home. No cultures obtained. Abdominal pelvis CT scan showed no acute findings at this time with IV contrast having been given before the study. ASSESSMENT: 1. Acute abdominal pain epigastric to left upper quadrant possibly recurrence of previously diagnosed pancreatitis to be observed and treated supportively to try to minimize any worsening. Also possibility of a side effect of the Amitiza and Milk of Magnesia recently taken with good results in eliminating a previously noted fecal impaction. 2. History of hypertension. 3. History of fecal impaction in the past. PLAN: The patient is placed in the hospital and will be placed on clear liquids tonight to advance to full liquids by in the morning and check on the patient's response. Give analgesia as needed. Check H. pylori. Try Protonix parenterally. Close observation necessary. [facility][id number] [facility]
[2017-03-03] MEDS: KCL 20 MEQ/NS 1,000 ML IVS PRN (21:13)
[2017-03-03] MEDS: SUCRALFATE 1 GM/10 ML 1 GM UD PO SCH ×2 (21:14)
[2017-03-03] MEDS: KETOROLAC TROMETHAMINE INJ 30 MG/ML VIAL IV PRN (21:15)
[2017-03-03] MEDS: SODIUM CHLORIDE 0.9% (FLUSH) 10 ML SYG IV PRN (21:15)
[2017-03-04] MEDS: SODIUM CHLORIDE 0.9% (FLUSH) 10 ML SYG IV PRN (02:16)
[2017-03-04 05:57] VITALS: BP 98/63; TEMP 97.2
[2017-03-04] MEDS: SUCRALFATE 1 GM/10 ML 1 GM UD PO SCH ×2 (06:01→10:23)
[2017-03-04 06:11] VITALS: O2SAT 98
[2017-03-04] MEDS: KETOROLAC TROMETHAMINE INJ 30 MG/ML VIAL IV PRN (07:54)
[2017-03-04] MEDS: KCL 20 MEQ/NS 1,000 ML IVS PRN (10:18)
--- NOTE | 2017-03-04 14:09 | DS ---
DISCHARGE DIAGNOSIS: 1. Acute abdominal pain, showing clinical improvement. 2. Pain probably contributed to by Amitiza with abdominal cramping, discomfort and nausea, showing improvement after holding the medication. 3. History of hypertension, possibly directly related to the abdominal discomfort, showing improvement and stabilization without further treatment. 4. History of fecal impaction in the past. HISTORY OF PRESENT ILLNESS: This 89year-old, white female was placed in the hospital for overnight observation and treatment observation because of worsening abdominal pain which had its onset prior to her placement in the hospital. In the Emergency Room, she had pain requiring Dilaudid parenterally and had an elevated lipase. Since the pain was somewhat similar to pain she has had before with pancreatitis and with the elevated lipase, the patient was placed in the hospital on clear liquids, slowly advanced to full liquids before discharged home and repeat laboratory investigation. Her blood pressure was markedly elevated which spontaneously returned to a normal fairly low level. Her pains slowly improved. She has been on Amitiza on a regular basis recently and has also been taking some as needed Milk of Magnesia to successfully remove a fecal impaction recently noted. One of the side effects would be abdominal cramps and nausea, which has shown some improvement after stopping the medication. LABORATORY: White count 3,600 with 47% neutrophils. D-dimer under 230. Chemistries show potassium up to 4.1, CO2 down to 26, BUN 10, creatinine 0.48, calcium 8.4. Liver enzymes normal. Cardiac enzymes normal. C-reactive protein 0. Albumin 3.8, lipase decreased from 121 to 26. Urinalysis shows trace blade, positive opioids from a Tylenol No. 3 taken before Emergency Room visit and H. pylori antibody was negative. No cultures were obtained. Abdominopelvic CT scan showed no acute abnormalities. HOSPITAL COURSE: The patient was feeling much improved on the morning of discharge. She was ready to attempt to slowly advance her diet and to have close followup with Dr. Corrales in the clinic. PLAN: She is discharged home to have further outpatient followup with Dr. Corrales with a clinic appointment in 7 days. She is to stop her Amitiza at the present time and save if needed in the future. Start MiraLAX 17 grams on a daily basis, may eventually reduce it to 3 times a week as needed with Milk of Magnesia 2 to 3 times a week if needed. Adequate fluid intake is important. She will try the Tylenol No. 3 which she has at home for pain relief if need be , but keep it to a minimum because of its constipating effect. Continue to collect two stool specimens for occult blood. Return if not improving. #[id number] [facility]
[2017-03-04] MEDS ORDERED: ENOXAPARIN SODIUM 40 MG/0.4 ML SYG SUBCU SCH (21:00)
[2017-03-04] MEDS ORDERED: PANTOPRAZOLE SODIUM IV 40 MG VIAL IV SCH (21:00)
== END 2017-03-04 10:30 | disposition home or self-care (01) ==
LOC: ER 15:13 → UNDOADMOB 20:09 → MS 20:09
PROVIDERS: ADMIT Emergency Medicine; ATTEND Emergency Medicine
DX: R10.13 Epigastric pain (principal); I10 Essential (primary) hypertension; F32.9 Major depressive disorder, single episode, unspecified; F41.9 Anxiety disorder, unspecified; E78.5 Hyperlipidemia, unspecified; N28.1 Cyst of kidney, acquired; Z79.899 Other long term (current) drug therapy; Z88.6 Allergy status to analgesic agent; Z91.040 Latex allergy status; Z86.2 Personal history of diseases of the blood and blood-forming organs and certain disorders involving the immune mechanism; Z98.1 Arthrodesis status; Z90.49 Acquired absence of other specified parts of digestive tract; Z90.710 Acquired absence of both cervix and uterus; Z82.49 Family history of ischemic heart disease and other diseases of the circulatory system; Z83.3 Family history of diabetes mellitus

== ENCOUNTER 2017-03-14 22:26 | Emergency (ER) | payer OTHER ==
[2017-03-14 22:43] VITALS: TEMP 97.2
[2017-03-14] MEDS ORDERED: LIDOCAINE VIS-MYLANTA 30 ML UD PO ONE (22:52)
--- NOTE | 2017-03-14 23:28 | RAD ---
Procedure: XR ABDOMEN 2 VIEWS SUPINE ERECT Exam Date: 03/14/2017 Ordering Provider: Ashley Rodriguez Clinical Indication: epigastric pain Comparison: 03/03/2017 CT abdomen pelvis Findings: Upright chest x-ray: Cardiac size is normal. Pulmonary vasculature is normal. Mediastinal and aortic contour normal. There is no consolidation or effusion. Flat and upright abdomen: Cholecystectomy clips. There is no small or large bowel distention. Large stool burden in the right colon. There is no pneumoperitoneum. There are no suspicious calcifications. There is no acute skeletal abnormality. Impression: 1. No acute radiographic abnormalities in the chest, abdomen or pelvis. 2. Large stool burden in the right colon. Electronically signed by: Steve Storm MD 03/14/2017 11:28 PM CDT
[2017-03-14] MEDS ORDERED: HYDROmorphone HCL INJ 2 MG/ML VIAL IV ONE (23:41)
--- NOTE | 2017-03-15 00:29 | ED.PDOC ---
History of Present Illness - General Chief Complaint: Abdominal Pain Stated Complaint: UPPER ABD PAIN Time Seen by Provider: 03/14/17 22:44 Information Source: patient, RN notes reviewed, Vital Signs reviewed Exam Limitations: no limitations - History of Present Illness Initial Comments: Patient is a 46 y/o female with a history of pancreatitis who comes in tonight complaining of epigastric pain. The started earlier today, but has progressively gotten worse and is severe this evening. The pain is a 7-8/10, dull aching pain. Patient was admitted for OBS two week ago for the same symptoms. At that time, her lipase was mildly elevated at 125. By the AM, her lipase was back to normal and Patient no longer had any abdominal pain. She is having the same symptoms now. The pain is similar to the time she had pancreatitis previously. Abdominal Pain Onset Location: epigastric Pain Radiation: no radiation Quality: severe, aching, dull Timing/Duration: 7-24 hours Review of Systems - Review of Systems Constitutional: States: no symptoms reported. Denies: fever EENTM: States: no symptoms reported Respiratory: States: no symptoms reported Cardiology: States: no symptoms reported Gastrointestinal/Abdominal: States: abdominal pain. Denies: diarrhea, nausea, vomiting Genitourinary: States: no symptoms reported Musculoskeletal: States: no symptoms reported Skin: States: no symptoms reported Neurological: States: no symptoms reported Endocrine: States: no symptoms reported Hematologic/Lymphatic: States: no symptoms reported All other Systems: Reviewed and Negative Past Medical History (General) - Patient Medical History Hx Seizures: No Hx Stroke: No Hx Dementia: No Hx Asthma: No Hx of COPD: No Hx Cardiac Disorders: No Hx Congestive Heart Failure: No Hx Pacemaker: No Hx Hypertension: Yes Hx Thyroid Disease: No Hx Diabetes: No Hx Gastroesophageal Reflux: No Hx Renal Disease: No Hx Cancer: No Hx of HIV: No Hx Hepatitis C: No Hx MRSA: No - Unknown Source 2014 Surgical History: appendectomy, cholecystectomy, Hysterectomy - Vaccination History Hx Tetanus, Diphtheria Vaccination: Yes Hx Influenza Vaccination: Yes Hx Pneumococcal Vaccination: No Immunizations Up to Date: Yes - Social History Hx Tobacco Use: No Hx Alcohol Use: No Hx Substance Use: No Hx Substance Use Treatment: No Hx Depression: No Hx Physical Abuse: No Hx Emotional Abuse: No Hx Suspected Abuse: No - Female History Patient is a Female of Child Bearing Age (10 -59 yrs old): No Patient : No Family Medical History - Family History Mother Family History: No Known Living Status: Still Living Physical Exam - Physical Exam General Appearance: Alert, Obvious distress, Well Groomed Eyes, Ears, Nose, Throat Exam: normal ENT inspection Neck: full range of motion, supple Respiratory: lungs clear, normal breath sounds, no respiratory distress, no accessory muscle use Cardiovascular/Chest: regular rate, rhythm, no edema, no gallop, no murmur Gastrointestinal/Abdominal: normal bowel sounds, soft, no organomegaly, tenderness - epigastric Back Exam: normal inspection, no CVA tenderness, no vertebral tenderness Extremity: normal range of motion, non-tender, normal inspection, no pedal edema , no calf tenderness Neurologic: alert, normal mood/affect, oriented x 3 Skin Exam: normal color, warm/dry Progress - Progress Progress: 03/15/17 00:37 Since Patient is having similar symptoms to previously and her lipase is elevated, I felt it best to transfer her to [facility] for OBS and consult with gastroenterology. - Results/Orders Results/Orders: 03/14/17 03/15/17 22:38 00:16 Temperature 97.2 F L Pulse Rate [ 98 H 85 MONITOR] Respiratory 20 18 Rate Blood Pressure 154/96 153/92 [;EFT AR,] O2 Sat by Pulse 93 L 84 L Oximetry 03/14/17 23:51 URINALYSIS Stat Laboratory Results WBC 4.6 K/mm3 (4.8-10.8) L 03/14/17 23:00 RBC 3.98 M/mm3 (4.20-5.40) L 03/14/17 23:00 Hgb 12.2 gm/dL (12.0-16.0) 03/14/17 23:00 Hct 37.1 % (36.0-47.0) 03/14/17 23:00 MCV 93.4 fl (81.0-99.0) 03/14/17 23:00 MCH 30.6 pg (27.0-31.0) 03/14/17 23:00 MCHC 32.8 g/dL (33.0-37.0) L 03/14/17 23:00 RDW 13.6 % (11.5-14.5) 03/14/17 23:00 Plt Count 209 K/mm3 (130-400) 03/14/17 23:00 MPV 8.6 fl (7.40-10.4) 03/14/17 23:00 Absolute Neuts (auto) 3.60 K/uL (1.8-6.8) 03/14/17 23:00 Absolute Lymphs (auto) 0.80 K/uL (1.0-3.4) L 03/14/17 23:00 Absolute Monos (auto) 0.20 K/uL (0.2-0.8) 03/14/17 23:00 Absolute Eos (auto) 0.10 K/uL (0.0-0.4) 03/14/17 23:00 Absolute Basos (auto) 0.00 K/uL (0.0-0.1) 03/14/17 23:00 Neutrophils % 76.9 % (42.0-78.0) 03/14/17 23:00 Lymphocytes % 16.6 % (20.0-50.0) L 03/14/17 23:00 Monocytes % 4.9 % (2.0-9.0) 03/14/17 23:00 Eosinophils % 1.4 % (1.0-5.0) 03/14/17 23:00 Basophils % 0.2 % (0.0-2.0) 03/14/17 23:00 Sodium 139 mmol/L (135-145) 03/14/17 23:00 Potassium 4.0 mmol/L (3.6-5.0) 03/14/17 23:00 Chloride 101 mmol/L (101-111) 03/14/17 23:00 Carbon Dioxide 32 mmol/L (21-31) H 03/14/17 23:00 Anion Gap 10.0 (12-18) L 03/14/17 23:00 BUN 8 mg/dL (7-18) 03/14/17 23:00 Creatinine 0.60 mg/dL (0.6-1.3) 03/14/17 23:00 BUN/Creatinine Ratio 13.3 (10-20) 03/14/17 23:00 Random Glucose 113 mg/dL (70-105) H 03/14/17 23:00 Serum Osmolality 276.7 mOsm/L (275-295) 03/14/17 23:00 Calcium 9.2 mg/dL (8.4-10.2) 03/14/17 23:00 Total Bilirubin 0.2 mg/dL (0.2-1.0) 03/14/17 23:00 AST 37 IU/L (10-42) 03/14/17 23:00 ALT 30 IU/L (10-60) 03/14/17 23:00 Alkaline Phosphatase 80 IU/L (42-121) 03/14/17 23:00 Serum Total Protein 7.6 gm/dL (6.4-8.2) 03/14/17 23:00 Albumin 4.3 g/dl (3.2-5.5) 03/14/17 23:00 Globulin 3.3 gm/dL (2.3-3.5) 03/14/17 23:00 Albumin/Globulin Ratio 1.3 (1.1-1.9) 03/14/17 23:00 Lipase 250 U/L (22-51) H 03/14/17 23:00 Departure - Departure Clinical Impression: Elevated lipase, Epigastric abdominal pain Time of Disposition: 00:38 Disposition: Transfer to Hospital Referrals: Patrick Corrales MD [Primary Care Provider] - 1-2 Weeks Home Medications: Ambulatory Orders Zolpidem Tartrate [Ambien] 5 mg PO DAILY 03/03/17 Rosuvastatin Calcium [Crestor] 20 mg PO DAILY 03/14/17 Transfer to Outside Facility - Transfer Information Accepting Provider:: Dr. Moy Accepting Facility: [facility] Reason for Transfer: required specialist not available
[2017-03-15 00:59] VITALS: BP 143/88; O2SAT 97
== END 2017-03-15 00:59 | disposition short-term general hospital (02) ==
LOC: ER 22:26
DX: R10.13 Epigastric pain (principal); R79.89 Other specified abnormal findings of blood chemistry; I10 Essential (primary) hypertension

== ENCOUNTER → 2017-04-10 | Outpatient (CLI) | payer OTHER | END | disposition home or self-care (01) | LOC: LAB.O 10:16 | PROVIDERS: ATTEND Internal Medicine Nephrology | DX: N18.4 Chronic kidney disease, stage 4 (severe) (principal) ==

== ENCOUNTER → 2017-04-16 | Outpatient (CLI) | payer OTHER ==
--- NOTE | 2017-04-16 14:57 | CT ---
EXAM DESCRIPTION: Abdomen w/o Contrast CLINICAL HISTORY: 46 years Female, CHRONIC KIDNEY DISEASE, STAGE 4 COMPARISON: March 03, 2017 TECHNIQUE: Noncontrast imaging with MPR reformatted studies was performed. This exam was performed according to our departmental dose-optimization program, which includes automated exposure control, adjustment of the mA and/or kV according to patient size and/or use of iterative reconstruction technique. FINDINGS: Noncontrast imaging of the abdomen demonstrates clear lung bases without infiltrate or effusion or evidence of volume overload. Examination was continued to the level of the iliac crests. The gallbladder is surgically absent without ductal dilation. Noncontrast imaging of the liver shows no specific focal abnormality. The kidneys are normal in size and appearance and cortical thickness with no evidence of cyst or mass or renal obstruction. A specific morphologic abnormality to explain the patient's stage IV renal failure is not apparent. On the left the small intrarenal cysts are not well seen but the exophytic cyst arising from the upper pole of the left kidney is unchanged from previous enhanced examination. The anterior abdominal wall and the spine are unremarkable with no evidence of intra-abdominal bowel obstruction or abnormality. IMPRESSION: 1. Normal appearing kidneys on noncontrast imaging with an exophytic slightly greater than 1 cm cyst upper pole of the left kidney, unchanged from recent enhanced examination 2. Surgical absence of the gallbladder with otherwise normal appearance of the abdomen without contrast enhancement. Electronically signed by: Patrick Almanzar MD 04/16/2017 2:57 PM CDT
== END | disposition home or self-care (01) ==
LOC: CT 08:37
PROVIDERS: ATTEND Internal Medicine Nephrology
DX: N18.4 Chronic kidney disease, stage 4 (severe) (principal)

== ENCOUNTER → 2017-06-03 | Outpatient (CLI) | payer OTHER ==
--- NOTE | 2017-06-04 10:00 | RAD ---
EXAM DESCRIPTION: Lumbar Spine 3 Views CLINICAL HISTORY: LOW BACK PAIN COMPARISON: January 22, 2017 TECHNIQUE: AP/lateral/coned-down lateral/both obliques FINDINGS: Bony spine is osteopenic with preservation of lumbar vertebral height. This is unchanged from prior study. Tiny amount of anterior wedging of the T11 vertebral body appears in retrospect unchanged from prior examination and possibly represents an old minimal compression deformity at T11. Tiny amount of degenerative lipping anteriorly at the L4 and L5 level is noted. The SI joints are unremarkable. No destructive process is seen. The masslike density overlying the left mid abdomen is no longer apparent and likely represented a bowel loop at the time of previous imaging. IMPRESSION: Osteopenia with mild degenerative changes and minimal curvature of the spine to the left. Questionable old mild T11 compression deformity, unchanged from prior study. Electronically signed by: Patrick Almanzar MD 06/04/2017 9:59 AM CDT
== END ==
LOC: RAD 15:45
PROVIDERS: ATTEND Nurse Practitioner Acute Care
DX: M54.5 Low back pain (principal); M85.88 Other specified disorders of bone density and structure, other site

== ENCOUNTER → 2017-06-12 | Outpatient (CLI) | payer OTHER ==
--- NOTE | 2017-06-15 05:50 | MRI ---
Procedure: MR LUMBAR SPINE WITHOUT THEN WITH IV CONTRAST Exam Date: 06/12/2017 12:00 AM CDT Ordering Provider: SIMONE CRISTINA Clinical Indication: RADICULOPATHY Comparison: None Technique: Multiplanar, multisequence MR images of the lumbar spine were obtained with and without contrast. Findings: Motion degraded exam. No evidence of vertebral body compression deformity or acute fracture. No scoliotic curvature.. Spinal cord terminates at the superior endplate of L1 and is normal in signal morphology. Cauda equina separate appropriately. T12-L1: Unremarkable. L1-L2: Unremarkable. L2-L3: Unremarkable. L3-L4: Unremarkable. L4-L5: Postsurgical changes of decompressive laminectomy. No spinal canal or foraminal stenosis. L5-S1: Unremarkable. Prevertebral and paravertebral soft tissues are unremarkable. Simple renal cyst seen within the left kidney. No pathologic enhancement. Impression: 1. Postsurgical changes at L4-L5. Otherwise, grossly unremarkable MRI of the lumbar spine with and without contrast given motion degradation on the axial imaging. 2. Left renal cyst. Electronically signed by: Obey Arevalo MD 06/15/2017 5:49 AM CDT
--- NOTE | 2017-06-18 12:55 | MAM ---
EXAM DESCRIPTION: 3D Screening BILATERAL CLINICAL HISTORY: 46 yearsFemaleSCREENING. Mother with breast and ovarian cancer. Postmenopausal. Has taken HRT less than five years ago.. COMPARISON: Digital 2-D screening bilateral examination 05/03/2016.. No prior reports available. TECHNIQUE: Bilateral CC and MLO projection full-field images, 3-D tomosynthesis digital mammographic technique. Also bilateral synthesized CC/ MLO full-field images. CAD not utilized. FINDINGS: The breast parenchymal density pattern is: Scattered areas of fibroglandular density. No skin thickening or nipple retraction local asymmetry in the middle third of the right breast approximately 9 cm from the nipple at the 1200 clock position. Not well seen on the prior study. No abnormal microcalcifications. Intramammary lymph node left axillary tail. No focal, stellate mass or density, focal asymmetry , and no suspicious microcalcifications left breast. IMPRESSION: BI-RADS CATEGORY: 0 - INCOMPLETE- Need additional imaging evaluation. FOLLOW-UP: Recall for additional imaging: Targeted ultrasound right breast in the region of interest in the middle third as previously described.. Electronically signed by: Pablo Real MD 06/18/2017 12:54 PM CDT Workstation: [id number]
== END ==
LOC: MAMMO 10:00
PROVIDERS: ATTEND Family Medicine
DX: Z12.31 Encounter for screening mammogram for malignant neoplasm of breast (principal); M54.16 Radiculopathy, lumbar region; N28.1 Cyst of kidney, acquired; Z98.890 Other specified postprocedural states
CPT/HCPCS: 72158; G0202; G0279

== ENCOUNTER → 2017-06-26 | Outpatient (CLI) | payer OTHER ==
--- NOTE | 2017-06-26 15:14 | US ---
EXAM DESCRIPTION: Breast,Right CLINICAL HISTORY: 46 years Female, recent screening mammogram showed possible abnormality right breast COMPARISON: June 12, 2017 FINDINGS: Real-time ultrasound right breast performed by me shows no solid, cystic, or worrisome abnormality. The mammographic finding in question is breast parenchyma. IMPRESSION: BIRAD CATEGORY: 1 NEGATIVE Electronically signed by: Jimy Evans MD 06/26/2017 3:12 PM CDT Workstation: [email or web address]
== END | disposition home or self-care (01) ==
LOC: MAMMO 11:00
PROVIDERS: ATTEND Family Medicine
DX: R92.8 Other abnormal and inconclusive findings on diagnostic imaging of breast (principal)

== ENCOUNTER 2017-07-17 05:49 | Day surgery (SDC) | payer OTHER ==
[2017-07-17] MEDS ORDERED: LACTATED RINGERS 1,000 ML ONE (06:10)
[2017-07-17] MEDS ORDERED: MIDAZOLAM INJ 5 MG/5 ML VIAL ONE (07:14)
[2017-07-17] MEDS ORDERED: fentaNYL CITRATE INJ 50 MCG/ML AMP ONE (07:15)
[2017-07-17 09:43] VITALS: O2SAT 96
[2017-07-17] MEDS ORDERED: PROPOFOL 200 MG/20 ML VIAL IV ONE (10:00)
[2017-07-17] MEDS ORDERED: LIDOCAINE 1% 10 ML VIAL INJ ONE (10:00)
--- NOTE | 2017-07-17 10:09 | OP ---
DATE OF PROCEDURE: 07/17/17 PREOPERATIVE DIAGNOSIS: 1. Bilateral lower quadrant pain. 2. Change in bowel habits. POSTOPERATIVE DIAGNOSIS: 1. Bilateral lower quadrant pain. 2. Change in bowel habits. PROCEDURE: 1. Colonoscopy plus biopsy. SURGEON: Dwayne Brooke MD. COMPLICATIONS: None apparent. BLOOD LOSS: None. MEDICATIONS: Monitored anesthesia care. DESCRIPTION OF PROCEDURE: Informed consent was obtained prior to sedation. The preprocedure cardiopulmonary assessment was satisfactory. The patient was placed in the left lateral decubitus position and was sedated. A digital rectal exam was unremarkable. The tip of the Olympus colonoscope was inserted in the rectum and guided over to the cecum. The cecum was identified by locating the ileocecal valve and appendiceal orifice. Prep was good overall. There was a little bit of sediment remaining that I washed and irrigated and suctioned away. Visibility was good overall. The mucosa of the cecum, ascending colon, hepatic flexure, transverse colon, splenic flexure, descending colon and sigmoid colon was closely examined. There was no inflammation, ulceration, or other significant mucosal pathology seen. Biopsies were obtained randomly with cold biopsy forceps to look for microscopic colitis. No polyps were identified. RECOMMENDATIONS: 1. Await biopsy results. Call our office in one week to check on those. 2. Dicyclomine p.r.n. 3. MiraLAX p.r.n. 4. Followup with Madhu Nicole in our office in 3 weeks. 5. She needs followup colonoscopy for colon cancer screening in 10 years as she is average risk. #[id number] cc: KWAME Carson
[2017-07-17 10:29] VITALS: BP 117/77; TEMP 96.3
== END 2017-07-17 09:00 | disposition home or self-care (01) ==
LOC: AMB 05:49
PROVIDERS: ATTEND Internal Medicine Gastroenterology
DX: R10.32 Left lower quadrant pain (principal); R10.31 Right lower quadrant pain; R19.4 Change in bowel habit; E78.00 Pure hypercholesterolemia, unspecified; K58.9 Irritable bowel syndrome, unspecified; K21.9 Gastro-esophageal reflux disease without esophagitis; Z88.8 Allergy status to other drugs, medicaments and biological substances; Z91.040 Latex allergy status; Z79.899 Other long term (current) drug therapy
CPT/HCPCS: 00810; 45380; J2250; J3010; J3490; J7120

== ENCOUNTER → 2017-10-02 | Outpatient (CLI) | payer OTHER | END | disposition home or self-care (01) | LOC: YCFC.O 15:35 | PROVIDERS: ATTEND Nurse Practitioner Family | DX: M25.50 Pain in unspecified joint (principal) ==

== ENCOUNTER → 2018-11-03 | Outpatient (CLI) | payer OTHER | LOC: GMAM 10:51 | PROVIDERS: ATTEND Family Medicine | DX: D51.3 Other dietary vitamin B12 deficiency anemia (principal) ==

== ENCOUNTER → 2019-07-15 | Outpatient (CLI) | payer BC ==
--- NOTE | 2019-07-15 15:33 | MRI ---
MRI left ankle without contrast INDICATION: Stress fracture previous surgery TECHNIQUE: Noncontrast MR imaging left ankle FINDINGS: Distal Achilles is intact. There is interstitial partial tear or postsurgical release change of the plantar aponeurosis with adjacent active soft tissue edema suggesting plantar fasciitis. Mild calcaneal marrow edema as well. There is subtle mild marrow edema in the cuboid indicating mild stress reaction. Metal artifact from previous fixation medial malleolus. Mortise is congruent. Syndesmosis is congruent. No osteochondral lesion of the talar dome. No edema in the visualized proximal metatarsals IMPRESSION: Previous medial medial malleolar fixation Interstitial partial tear and edema plantar aponeurosis with adjacent marrow edema in the calcaneus indicating plantar fasciitis question previous surgery Subtle mild marrow edema in the cuboid likely mild stress reaction Electronically signed by: Nayan Mancini MD 07/15/2019 3:31 PM CDT
--- NOTE | 2019-07-15 15:40 | MRI ---
MRI left foot without contrast INDICATION: Foot pain stress fracture TECHNIQUE: Noncontrast MR imaging left foot FINDINGS: No metatarsal fracture or stress fracture. Metal artifact related to the medial malleolar fixation Trace edema in the cuboid indicating mild degeneration or stress reaction. Interstitial mild partial tear plantar aponeurosis with adjacent soft tissue and marrow edema indicating plantar fasciitis and interstitial partial tear. No regional tendon disruption. IMPRESSION: No fracture or stress fracture in the forefoot Plantar fasciitis with active edema and interstitial partial tear of the plantar aponeurosis Electronically signed by: Nayan Mancini MD 07/15/2019 3:39 PM CDT
== END ==
LOC: MRI 13:49
PROVIDERS: ATTEND Orthopaedic Surgery
DX: M72.2 Plantar fascial fibromatosis (principal); Z87.81 Personal history of (healed) traumatic fracture

== ENCOUNTER 2019-10-02 05:16 | Emergency (ER) | payer BC ==
[2019-10-02] MEDS ORDERED: ONDANSETRON INJ 4 MG/2 ML VIAL IV ONE (05:39)
[2019-10-02] MEDS ORDERED: SODIUM CHLORIDE 0.9% (FLUSH) 10 ML SYG IV PRN (05:39)
[2019-10-02] MEDS ORDERED: SODIUM CHLORIDE 0.9% 1000ML 1,000 ML IVS PRN (05:39)
[2019-10-02] MEDS ORDERED: MORPHINE SULFATE INJ 10 MG/ML VIAL IV ONE (05:40)
--- NOTE | 2019-10-02 05:44 | ED.PDOC ---
History of Present Illness - General Chief Complaint: Abdominal Pain Stated Complaint: sharp stomach pains Time Seen by Provider: 10/02/19 05:34 Information Source: patient - History of Present Illness Initial Comments: 48-year-old female presents to the emergency department complaining of upper abdominal pain onset 1 AM this morning. She reports having a history of reflux which she takes Prilosec nightly for that the pain feels different from that. She reports that it feels similar to when she had diverticulitis in the past. She denies any associated vomiting or diarrhea and has not noticed any blood in her stool. She describes the pain as sharp and waxing and waning and there is nothing that she does seems to make it significantly better or worse. Currently she rates her pain as 7/10 in severity. Review of Systems - Review of Systems Constitutional: Denies: chills, fever EENTM: Denies: nose congestion, throat pain Respiratory: Denies: cough, short of breath Cardiology: Denies: chest pain, palpitations Gastrointestinal/Abdominal: States: abdominal pain, nausea. Denies: diarrhea, vomiting Musculoskeletal: Denies: joint pain, muscle pain Neurological: Denies: headache, weakness Past Medical History (General) - Patient Medical History Hx Seizures: No Hx Stroke: No Hx Dementia: No Hx Asthma: No Hx of COPD: No Hx Cardiac Disorders: No Hx Congestive Heart Failure: Yes Hx Pacemaker: No Hx Hypertension: Yes Hx Thyroid Disease: No Hx Diabetes: No Hx Gastroesophageal Reflux: No Hx Renal Disease: No Hx Cancer: No Hx of HIV: No Hx Hepatitis C: No Hx MRSA: No Surgical History: appendectomy, cholecystectomy, Hysterectomy - Vaccination History Hx Tetanus, Diphtheria Vaccination: No Hx Influenza Vaccination: No Hx Pneumococcal Vaccination: No - Social History Hx Tobacco Use: No Hx Alcohol Use: No Hx Substance Use: No Hx Substance Use Treatment: No Hx Depression: Yes Hx Physical Abuse: No Hx Emotional Abuse: No Hx Suspected Abuse: No - Female History Patient : No Family Medical History - Family History Mother Family History: No Known Living Status: Still Living Physical Exam - Physical Exam General Appearance: Alert, Well Developed, Well Nourished Eyes, Ears, Nose, Throat Exam: PERRL/EOMI, normal ENT inspection, pharynx normal Neck: full range of motion, normal inspection Respiratory: lungs clear, normal breath sounds, no respiratory distress, no accessory muscle use Cardiovascular/Chest: normal peripheral pulses, regular rate, rhythm, no murmur Peripheral Pulses: 2+ Gastrointestinal/Abdominal: soft, abnormal bowel sounds - hyperactive, tenderness - diffues, greatest in the epigastric area Back Exam: normal inspection Extremity: normal range of motion, normal inspection Neurologic: alert, oriented x 3, other - moves all extremities without focal deficits Skin Exam: normal color, warm/dry Comments: Vital Signs - 24 hr 10/02/19 05:28 Temperature 97.7 F Pulse Rate [ 73 left] Respiratory 18 Rate Blood Pressure 150/95 [left] O2 Sat by Pulse 93 L Oximetry Progress - Progress Progress: 10/02/19 06:38 Pt recheck: States that pain has imporved but still present. Will give a dose of pepcid IV. Lab results reviewed and showed mild leukopenia which is unchanged from previous levels and remainder of labs unremarkable. Waiting on CT report at this time. 10/02/19 06:56 Patient recheck: All lab and imaging results were discussed with the patient will plan for discharge home. She was instructed to take her home Pepcid as regular. She was instructed to take [id number] Maalox as needed for pain as well as encouraged to keep a food journal for any recurrent symptoms. She was instructed to call her primary care physician today to schedule follow-up appointment as soon as possible. And told to return to the emergency department immediately for significant worsening pain, fevers, vomiting or any other concerning signs or symptoms. The patient has voiced understanding and agrees with the treatment plan. - Results/Orders Results/Orders: Laboratory Results - last 24 hr 10/02/19 10/02/19 10/02/19 06:00 06:00 06:00 WBC 3.4 L RBC 4.08 L Hgb 13.1 Hct 39.4 MCV 96.5 MCH 32.1 H MCHC 33.2 RDW 13.9 Plt Count 225 MPV 8.0 Absolute Neuts (auto) 2.10 Absolute Lymphs (auto) 1.00 Absolute Monos (auto) 0.30 Absolute Eos (auto) 0.10 Absolute Basos (auto) 0.00 Neutrophils % 61.2 Lymphocytes % 28.6 Monocytes % 7.8 Eosinophils % 1.9 Basophils % 0.5 Sodium 139 Potassium 4.1 Chloride 100 L Carbon Dioxide 28 Anion Gap 15.1 BUN 12 Creatinine 0.68 BUN/Creatinine Ratio 17.6 Random Glucose 111 H Serum Osmolality 278.0 Calcium 9.0 Total Bilirubin 0.5 Direct Bilirubin < 0.1 Indirect Bilirubin 0.4 AST 28 ALT 23 Alkaline Phosphatase 84 Serum Total Protein 7.5 Albumin 4.0 Lipase 32 Urine Color Urine Appearance Urine pH Ur Specific [place] Urine Protein Urine Glucose (UA) Urine Ketones Urine Blood Urine Nitrite Urine Bilirubin Urine Urobilinogen Ur Leukocyte Esterase Urine RBC Urine WBC Ur Epithelial Cells Urine Bacteria Urine Mucus 10/02/19 06:00 WBC RBC Hgb Hct MCV MCH MCHC RDW Plt Count MPV Absolute Neuts (auto) Absolute Lymphs (auto) Absolute Monos (auto) Absolute Eos (auto) Absolute Basos (auto) Neutrophils % Lymphocytes % Monocytes % Eosinophils % Basophils % Sodium Potassium Chloride Carbon Dioxide Anion Gap BUN Creatinine BUN/Creatinine Ratio Random Glucose Serum Osmolality Calcium Total Bilirubin Direct Bilirubin Indirect Bilirubin AST ALT Alkaline Phosphatase Serum Total Protein Albumin Lipase Urine Color Yellow Urine Appearance Clear Urine pH 7.0 Ur Specific [place] 1.020 Urine Protein Negative Urine Glucose (UA) Negative Urine Ketones Negative Urine Blood Trace-intact H Urine Nitrite Negative Urine Bilirubin Negative Urine Urobilinogen 0.2 Ur Leukocyte Esterase Negative Urine RBC 0-1 Urine WBC 0-1 Ur Epithelial Cells 1-3 Urine Bacteria Rare Urine Mucus Trace 0603: EKG interpreted by myself as normal sinus rhythm rate 72. Normal axis. Normal intervals. No ST elevation in no acute ischemic changes. CT Abd and Pelvis read by radiology: IMPRESSION: No acute findings in the abdomen or pelvis. Electronically signed by: Jess Andrew MD 10/02/2019 6:52 AM [employer] Departure - Departure Clinical Impression: Epigastric abdominal pain Gastritis Qualifiers: Gastritis type: unspecified gastritis Chronicity: acute Gastritis bleeding: without bleeding Qualified Code(s): K29.00 - Acute gastritis without bleeding Time of Disposition: 06:58 Disposition: Discharge to Home or Self Care Condition: Good Departure Forms: ED Discharge - Pt. Copy, Patient Portal Self Enrollment Instructions: DI for Abdominal Pain-Adult, Ulcer and Gastritis Diet, Gastritis Referrals: Patrick Corrales MD [Primary Care Provider] - 1-5 Days Prescriptions: Hyoscyamine Sulfate [Levsin] 0.125 mg PO Q8H PRN #15 tab PRN Reason: Pain Ondansetron HCl [Zofran] 4 mg PO Q8H PRN #10 tab PRN Reason: Nausea Home Medications: Ambulatory Orders Rosuvastatin Calcium [Crestor] 20 mg PO BEDTIME 03/14/17 Citalopram Hydrobromide [Celexa] 10 mg PO BEDTIME 04/25/17 Melatonin 10 mg PO BEDTIME 04/25/17 Hyoscyamine Sulfate [Levsin] 0.125 mg PO Q8H PRN #15 tab 10/02/19 Ondansetron HCl [Zofran] 4 mg PO Q8H PRN #10 tab 10/02/19 Additional Instructions: Take prescriptions as needed. Continue [id number] Pepcid daily. Add [id number] Maalox as needed for recurrent symptoms. If symptoms recur keep a food diary of foods that may cause or exacerbate symptoms. Call your primary care physician today to schedule a follow-up appointment as soon as possible. Return to the emergency department immediately for worsening of symptoms or other concerns. Comments: DO Chioma Sanches#[id number]
[2019-10-02] MEDS ORDERED: FAMOTIDINE IV PREMIX 20 MG in PREMIX BAG 1 BAG IVPB ONE (06:38)
[2019-10-02] MEDS ORDERED: FAMOTIDINE IV PREMIX 50 ML IVPB ONE (06:43)
--- NOTE | 2019-10-02 06:54 | CT ---
EXAM: CT Abdomen and Pelvis With Intravenous Contrast CLINICAL HISTORY: upper abd pain TECHNIQUE: Axial computed tomography images of the abdomen and pelvis with intravenous contrast. Sagittal and coronal reformatted images were created and reviewed. This CT exam was performed using one or more of the following dose reduction techniques: automated exposure control, adjustment of the mA and/or kV according to patient size, and/or use of iterative reconstruction technique. COMPARISON: No relevant prior studies available. FINDINGS: Limitations: None. Lung bases: Unremarkable. No mass. No consolidation. ABDOMEN: Liver: There are multiple tiny hypodense nodules in the liver most likely cysts. Appearance benign. No further evaluation considered necessary. Gallbladder and bile ducts: Cholecystectomy. No ductal dilation. Pancreas: Unremarkable. No mass. No ductal dilation. Spleen: Unremarkable. No splenomegaly. Adrenals: Unremarkable. No mass. Kidneys and ureters: There are three approximately 1.2 cm or smaller cysts with fluid density left kidney. No further evaluation considered necessary. Right kidney appears normal. No hydronephrosis. Stomach and bowel: Moderate colonic stool present. No obstruction. No inflammation. No mucosal thickening. PELVIS: Appendix: No findings to suggest acute appendicitis. Bladder: Unremarkable. No mass. Reproductive: Unremarkable as visualized. ABDOMEN and PELVIS: Intraperitoneal space: Unremarkable. No free air. No significant fluid collection. Bones/joints: No acute fracture. No dislocation. Soft tissues: Small umbilical hernia noted containing fat. Vasculature: Unremarkable. No abdominal aortic aneurysm. Lymph nodes: Unremarkable. No enlarged lymph nodes. IMPRESSION: No acute findings in the abdomen or pelvis. Electronically signed by: Jess Andrew MD 10/02/2019 6:52 AM [employer]
[2019-10-02] MEDS ORDERED: ALUM & MAG HYDROX-SIMETHICONE 30 ML, LIDOCAINE VISCOUS 2% 15 ML PO ONE ×2 (06:56)
[2019-10-02] MEDS ORDERED: ALUM & MAG HYDROX-SIMETHICONE 30 ML UD ONE (07:02)
[2019-10-02] MEDS ORDERED: LIDOCAINE HCL 2% (MOUTH-THROAT) 15 ML UD ONE (07:02)
[2019-10-02 07:19] VITALS: BP 151/90; TEMP 97; O2SAT 99
== END 2019-10-02 07:15 | disposition home or self-care (01) ==
LOC: ER 05:16
DX: K29.00 Acute gastritis without bleeding (principal); R10.13 Epigastric pain; I11.0 Hypertensive heart disease with heart failure; I50.9 Heart failure, unspecified; F32.9 Major depressive disorder, single episode, unspecified; D72.819 Decreased white blood cell count, unspecified
CPT/HCPCS: 36415; 74177; 80048; 80076; 81001; 83690; 85025; 93005; J2270; J2405; J3490; J7030

== ENCOUNTER 2019-12-27 11:35 | Emergency (ER) | payer BC, OTHER ==
[2019-12-27] MEDS ORDERED: LIDOCAINE 1% 10 ML VIAL INJ ONE (12:04)
[2019-12-27] MEDS ORDERED: TRIAMCINOLONE ACETONIDE INJ 40 MG/ML VIAL ONE (12:05)
[2019-12-27] MEDS ORDERED: BUPIVACAINE 0.5% 30 ML VIAL INJ ONE (12:05)
[2019-12-27] MEDS ORDERED: MORPHINE SULFATE INJ 10 MG/ML VIAL IM ONE (12:14)
[2019-12-27] MEDS ORDERED: KETOROLAC TROMETHAMINE INJ 30 MG/ML VIAL IM ONE (12:15)
--- NOTE | 2019-12-27 12:18 | ED.PDOC ---
History of Present Illness - General Time Seen by Provider: 12/27/19 12:14 - History of Present Illness Initial Comments: c/o having R hip pain since 2 weeks : following pain clinic , has taken X-ray , put her on gabapentin , but the pain is getting worse . Improving Factors: nothing Worsening Factors: movement Allergies/Adverse Reactions: Allergies Acetaminophen [From [place]] Allergy (Verified 12/27/19 12:45) Rash Hydrocodone [From [place]] Allergy (Verified 12/27/19 12:45) Rash Latex Allergy (Verified 12/27/19 12:45) Rash Home Medications: Ambulatory Orders Rosuvastatin Calcium [Crestor] 20 mg PO BEDTIME 03/14/17 Citalopram Hydrobromide [Celexa] 10 mg PO BEDTIME 04/25/17 Melatonin 10 mg PO BEDTIME 04/25/17 Hyoscyamine Sulfate [Levsin] 0.125 mg PO Q8H PRN #15 tab 10/02/19 Ondansetron HCl [Zofran] 4 mg PO Q8H PRN #10 tab 10/02/19 Review of Systems - Review of Systems Constitutional: States: no symptoms reported EENTM: States: no symptoms reported Respiratory: States: no symptoms reported Cardiology: States: no symptoms reported Gastrointestinal/Abdominal: States: no symptoms reported Genitourinary: States: no symptoms reported Musculoskeletal: States: no symptoms reported Skin: States: no symptoms reported Neurological: States: no symptoms reported Endocrine: States: no symptoms reported Hematologic/Lymphatic: States: no symptoms reported Past Medical History (General) - Patient Medical History Hx Seizures: No Hx Stroke: No Hx Dementia: No Hx Asthma: No Hx of COPD: No Hx Cardiac Disorders: No Hx Congestive Heart Failure: Yes Hx Pacemaker: No Hx Hypertension: Yes Hx Thyroid Disease: No Hx Diabetes: No Hx Gastroesophageal Reflux: No Hx Renal Disease: No Hx Cancer: No Hx of HIV: No Hx Hepatitis C: No Hx MRSA: No - Vaccination History Hx Tetanus, Diphtheria Vaccination: No Hx Influenza Vaccination: No Hx Pneumococcal Vaccination: No - Social History Hx Tobacco Use: No Hx Alcohol Use: No Hx Substance Use: No Hx Substance Use Treatment: No Hx Depression: Yes Hx Physical Abuse: No Hx Emotional Abuse: No Hx Suspected Abuse: No - Female History Patient : No Family Medical History - Family History Mother Family History: No Known Living Status: Still Living Physical Exam - Physical Exam General Appearance: Alert, Comfortable Eyes, Ears, Nose, Throat: normal ENT inspection, TMs normal Neck: non-tender, full range of motion, supple, normal inspection Cardiovascular/Respiratory: regular rate, rhythm, no M/R/G, no JVD, normal breath sounds, no respiratory distress Back: normal inspection, no CVA tenderness, no vertebral tenderness Thigh/Hip: normal inspection, bone tenderness - tenderness on the trochanteric bursa , limited ROM, other Mental Status: alert, oriented x 3 Skin: normal color, warm/dry Progress - Progress Progress: 12/27/19 12:20 pt sasemani that she has taken morphine before without any side effects Departure - Departure Clinical Impression: Hip pain, right, Trochanteric bursitis Time of Disposition: 12:19 Disposition: Discharge to Home or Self Care Condition: Good Departure Forms: ED Discharge - Pt. Copy, Patient Portal Self Enrollment Diet: resume usual diet Activity: increase activity as tolerated, walking as tolerated Referrals: Patrick Corrales MD [Primary Care Provider] - 1-2 Weeks Home Medications: Ambulatory Orders Rosuvastatin Calcium [Crestor] 20 mg PO BEDTIME 03/14/17 Citalopram Hydrobromide [Celexa] 10 mg PO BEDTIME 04/25/17 Melatonin 10 mg PO BEDTIME 04/25/17 Hyoscyamine Sulfate [Levsin] 0.125 mg PO Q8H PRN #15 tab 10/02/19 Ondansetron HCl [Zofran] 4 mg PO Q8H PRN #10 tab 10/02/19 Additional Instructions: Refer to orthopedics , pt informed to follow up
[2019-12-27] MEDS ORDERED: diphenhydrAMINE HCL 50 MG/ML VIAL IM ONE (12:20)
[2019-12-27 12:42] VITALS: TEMP 97.9
[2019-12-27 13:06] VITALS: BP 123/60; O2SAT 97
== END 2019-12-27 13:06 | disposition home or self-care (01) ==
LOC: ER 11:35
DX: M70.61 Trochanteric bursitis, right hip (principal); I50.9 Heart failure, unspecified; I11.0 Hypertensive heart disease with heart failure; F32.9 Major depressive disorder, single episode, unspecified; Z79.899 Other long term (current) drug therapy; Z88.6 Allergy status to analgesic agent; Z88.5 Allergy status to narcotic agent; Z91.040 Latex allergy status
CPT/HCPCS: J1200; J1885; J2270; J3301

== ENCOUNTER → 2020-04-01 | Outpatient (CLI) | payer OTHER ==
--- NOTE | 2020-04-01 14:22 | MRI ---
EXAM DESCRIPTION: Lumbar Spine w/o Contrast CLINICAL HISTORY: 49 years Female, RADICULOPATHY COMPARISON: MRI of the lumbar spine dated 06/12/2017. TECHNIQUE: Multiplanar multiecho imaging of the lumbar spine was performed without intravenous contrast administration. FINDINGS: Straightening of the normal lordotic curvature of the lumbar spine. The vertebral body heights are well-maintained with no acute compression deformity. Multilevel intervertebral disc space narrowing is noted. The conus medullaris terminates at L1-L2 intervertebral disc space. The visualized spinal cord demonstrates no signal abnormality. L1-L2: No disc herniation. No canal stenosis. No significant neural foraminal narrowing. Mild bilateral facet arthropathy. L2-L3: No disc herniation. No canal stenosis. No significant neural foraminal narrowing. Mild bilateral facet arthropathy. L3-L4: No disc herniation. No significant central canal stenosis. Bilateral ligamentum flavum hypertrophy and facet arthropathy with resultant mild bilateral neural foraminal narrowing. L4-L5: No disc herniation. No canal stenosis. Mild bilateral facet arthropathy with resultant mild bilateral neural foraminal narrowing. Changes of posterior laminectomy are identified at this level. L5-S1: 4 mm diffuse disc bulge with no significant central canal stenosis. Mild bilateral neural foraminal narrowing secondary to facet arthropathy. The visualized prevertebral and paravertebral soft tissues appear unremarkable. IMPRESSION: Mild bilateral neural foraminal narrowing is noted L4-L5 and L5-S1 level secondary to facet arthropathy. Otherwise normal MRI of the lumbar spine. Electronically signed by: Fiona Rachel MD 04/01/2020 2:21 PM CDT
== END ==
LOC: MRI 13:00
PROVIDERS: ATTEND Anesthesiology
DX: M54.17 Radiculopathy, lumbosacral region (principal); M12.9 Arthropathy, unspecified; M53.86 Other specified dorsopathies, lumbar region